=== PATIENT | female | born 1950 | race Caucasian/White ===

== ENCOUNTER → 2017-10-03 13:11 | Outpatient (CLI) | payer MEDICARE, SELFPAY ==
--- NOTE | 2017-10-03 13:15 | CT_ITS ---
CT abdomen pelvis wo con INDICATION: Left-sided abdominal pain. Left back pain up to 3 months. Trace blood in urine ITS.REASON: ABD PAIN, HEMATURIA ORDERING PHYSICIAN: Efrain Bennett PATIENT AGE: 67 years COMPARISON: CT abdomen and pelvis from 2013 PROCEDURE: Oral Contrast: None IV Contrast: None TECHNIQUE: Axial images are obtained without contrast. Sagittal and coronal reformatted images are reviewed as well. All CT scans at the facility use one or more dose reduction, viz: automated exposure control; ma/kV adjustment per patient size (including targeted exams where dose is matched to indication; i.e. head); or iterative reconstruction technique. FINDINGS: Lung bases appear clear. Heart normal size. Small sliding hiatal hernia. Benign Calcified granulomas right lung base.. Abdomen/pelvis. Lack of oral and IV contrast decreases sensitivity. Liver, spleen, pancreas, adrenals satisfactory.. The right lobe liver appears generous length but stable measuring 20 cm in length. Gallbladder is been surgically removed. No biliary ductal dilatation. TRACT . No urinary tract calculi nor obstruction. No renal mass evident at the kidneys. Slight lobulated contour towards upper left kidney is similar to 2014.. Ureters normal course and caliber. Pelvis. Small contracted urinary bladder. Empty. Difficult to evaluate in empty state but no calcifications at bladder. 3.4 cm fibroid at the fundus of uterus with dense popcorn like calcification. It was seen previously with no significant change since 2013. I uterus otherwise similar. No adnexal masses. Ovaries appear normal size. GI TRACT . LARGE BOWEL. [place], Redundant cecum which resides at midline just below the level of the the umbilicus. Increased stool throughout the right colon and transverse colon.. May reflect mild constipation. . Colonic Diverticulosis is, most extensive at the sigmoid colon with scattered diverticuli throughout the descending colon and less evident proximal to the splenic flexure. Very slight hazy appearance adjacent the colon on axial image 52 but I doubt this is of significance. Likely stable. No strong evidence of acute diverticulitis. Terminal ileum appears normal. Small residual stump the appendix noted and appears satisfactory.. Posterior fusion L5/S1 since since 2013.. With this there is some additional induration and or mild soft tissue edema posterior to the lower L-spine at the back. Nonspecific not of current significance. There is streak Streak artifact from the metallic elements. . IMPRESSION: ...... 1. No urinary tract calculi nor obstruction to account for the history of hematuria. No renal masses. Bladder is empty difficult to evaluate but no obvious pathology here. 2.. Uterus appears stable with 3.3 cm calcified uterine fibroid at fundus. No adnexal masses. 3. Generous stool throughout the right and transverse colon 4. Colonic diverticulosis most extensive in sigmoid colon.No convincing diverticulitis. Initially question slight wispy appearance at the proximal descending colon but but I believe this is most likely due the mesentery structures leading to the bowel, noting similar appearance in 2014 5. Interval L5/S1 postsurgical changes and posterior fusion
== END ==
PROVIDERS: Family Provider Internal Medicine; PCP Internal Medicine; Visit Provider Internal Medicine
DX: R31.9 Hematuria, unspecified (principal); R10.9 Unspecified abdominal pain
CPT/HCPCS: 74176

== ENCOUNTER → 2018-08-19 09:18 | Outpatient (CLI) | payer MEDICARE, SELFPAY ==
--- NOTE | 2018-08-19 09:25 | XR_ITS ---
XR acute abdomen series HISTORY: ITS.REASON: LT FLANK PAIN, LLQ PAIN ORDERING PHYSICIAN: Efrain Bennett PATIENT AGE: 68 years COMPARISON: None TECHNIQUE: Upright view of the chest is performed along with upright and supine views of the abdomen and pelvis. FINDINGS: An upright view of the chest shows no acute cardiac or pulmonary pathology. The lungs are clear. Upper identified views of the abdomen show surgical clips in right upper quadrant. There are postsurgical changes of the lumbar spine at the lumbosacral junction. Coarse calcifications are present within the pelvis consistent with fibroid involvement of the uterus. The bowel gas pattern is unremarkable. No intestinal obstruction or free air. No acute bony anomalies. IMPRESSION: As above, no acute finding
[2018-08-19 09:41] LABS: Basophils % 0.3 % (0.1-2.0); Eosinophils # 0.2 K/mm3 (0.0-0.4); Eosinophils % 1.8 % (0.1-12.0); Hematocrit 37.7 % (37.0-47.0); Hemoglobin 12.5 g/dL (12.2-16.2); Lymphocytes % 7.8 % (10-50); Mean Corpuscular HGB Conc 33.2 g/dL (31.8-35.4); Mean Corpuscular Hemoglobin 28.6 pg (27.0-31.2); Mean Platelet Volume 8.6 fl (7.4-10.4); Monocytes # 0.5 K/mm3 (0.1-1.0); Monocytes % 4.4 % (1.7-9.3); Neutrophils # 10.5 K/mm3 (1.8-7.8); Neutrophils % 85.6 % (37.0-80.0); Platelet Count 220 K/mm3 (142-424); Red Blood Count 4.38 M/mm3 (4.20-5.40); Red Cell Distribution Width 14.9 % (11.5-17.5); White Blood Count 12.2 K/mm3 (4.8-10.8)
[2018-08-19 09:51] LABS: MANUAL DIFFERENTIAL MANUAL DIFFERENTIAL (MANUAL DIFF)
[2018-08-19 10:11] LABS: Anion Gap 15.9 mEq/L (5-15); Blood Urea Nitrogen 23 mg/dL (7-18); Carbon Dioxide 27 mmol/L (21.0-32.0); Chloride 104 mmol/L (98-107); Creatinine,Serum 1.09 mg/dL (0.55-1.02); Estimated Glomerular Filt Rate 50 ml/min (>60); GFR (African American) 61 ML/MIN (>60); Glucose 163 mg/dL (74-106); Potassium 4.9 mmoL/L (3.5-5.1); Sodium 142 mmol/L (136-145)
[2018-08-19 10:55] LABS: Lymphocytes % 12 % (10-50); Monocytes % 5 % (2-9); Neutrophils % 82 % (42-76); Nucleated Red Blood Cells 1; Total Cells Counted 100
[2018-08-19 10:56] LABS: Platelet Estimate Normal
== END ==
PROVIDERS: PCP Internal Medicine; Visit Provider Internal Medicine
DX: R10.32 Left lower quadrant pain (principal)
CPT/HCPCS: 74021; 80048; 85007; 85025

== ENCOUNTER → 2019-11-18 10:43 | Outpatient (CLI) | payer MEDICARE, SELFPAY ==
[2019-11-18 13:16] LABS: Coronavirus 19 IgG Antibody Negative (Negative); Coronavirus 19 IgM Antibody Negative (Negative)
== END ==
PROVIDERS: Visit Provider Internal Medicine Gastroenterology
DX: Z01.818 Encounter for other preprocedural examination (principal); Z12.11 Encounter for screening for malignant neoplasm of colon
CPT/HCPCS: 36415; 86328

== ENCOUNTER 2019-11-20 08:25 | Day surgery (SDC) | payer MEDICARE, SELFPAY ==
[2019-11-17 12:39] VITALS: BMI 82.6
[2019-11-20] VITALS (8 sets, daily range): BP systolic 90–125; BP diastolic 52–84; PULSE 71–88; RESP 16–18; TEMP 36.1; O2SAT 92–97
--- NOTE | 2019-11-20 09:19 | HMH.ANESCL ---
[facility] Anesthesia Checklist - Patient Identification Patient Identification: Arm Band - Structural Data Admitted From: Home Planned Operative Procedure/s: EGD/Colonoscopy Consent for Planned Operative Procedure(s) Verified: Yes Verified Documents: Surgical Consent, History and Physical - NPO Status Verified Time NPO: 00:00 - Additional verifications Anesthesia Reactions: No - Airway Assessment C-Spine Mobility Assessed: Yes (mp2) TMJ Mobility Assessed: Yes Dentition: Good Dentition - Neurological Assessment Level of Consciousness: Awake, Alert - Anesthesia Plan Anesthesia Risk discussed: Yes Anesthesia Plan: Verified ASA Class: III Anesthesia Type: MAC [facility] History I have reviewed the patient's past medical history: Yes Medical History: Reports:: Asthma, Cancer (left breast), Gastroesophageal Reflux Disease(GERD), Hypertension Denies:: Diabetes Mellitus Type 1, Diabetes Mellitus Type 2, Internal Pacemaker, MRSA, Seizures *Have you ever received a pneumonia vaccine?: No *Have you received a flu vaccine this season?: Yes Anesthesia experience/problems:: nac Laterality Cases: Left: Lumpectomy, Right: Other, Bilateral: Tonsillectomy Other Surgeries: Yes: Appendectomy, Other. No: Pacemaker Amputation: No Fractures: No - *Social History Last grade of school completed: Some college Smoking Status: Former smoker Alcohol Intake: never Substance Use Type: denies use *Occupational Status:: retired Housing: house Household Members: spouse *Travel in the last 8 weeks: None Family Hx:: Cancer, Diabetes
--- NOTE | 2019-11-20 10:48 | HMH.PROC ---
[facility] Procedure Note Procedure Note:: Upper Endoscopy Procedure Report: Esophagogastroduodenoscopy with cold biopsies Endoscopost: Adryan Wilson II, MD Referring Physician: Efrain Bennett MD Date of Procedure: November 20, 2019 Equipment: Olympus GIF 180 standard upper endoscope Sedation: MAC sedation Indications: Mrs. Stein is a 69-year-old female with a history of Avila's esophagus. She did have biopsies in 2014 showing Avila's indeterminate for dysplasia. Her EGD again in July 2015 and August 2017 showed no dysplasia. The patient does get moderate belching, gassiness and bloating. Recently she has had left lower quadrant abdominal pain and tenderness that has been more constant since summer. She reports no dysphagia. Procedure: Prior to the procedure, a history and physical exam was performed, and patient's medications and allergies were reviewed. The risks, benefits and alternatives of the sedation and procedure were discussed with the patient. All questions were answered and informed consent was obtained. The patient was brought to the procedure room. Patient identification and proposed procedure were verified by the physician and the nurse. The patient was placed in a left lateral decubitus position and the scope was passed under direct vision. Throughout the procedure, the patient's blood pressure, pulse, and oxygen saturations were monitored continuously. The upper GI endoscopy was accomplished without difficulty. The patient tolerated the procedure well. Findings: The scope was passed directly into the upper esophagus and advanced to the third portion of the duodenum. The post bulbar duodenum and duodenal bulb were normal with normal mucosa and conniventes. The scope was withdrawn through a normal duodenal bulb and pylorus into the stomach. There was marked bile reflux with moderate linear reactive gastropathy of the antrum and body of the stomach. Upon retroflexion there was a 2 cm hiatal hernia. The scope was then withdrawn into the esophagus. There was bile reflux within the esophagus. There was a long tongue of salmon-colored mucosa with a small island of salmon-colored mucosa that were consistent with short segment Avila's esophagus. Narrowband imaging was utilized and specific/direct and biopsies were obtained x4. There was no evidence of reflux esophagitis. The remainder of the esophageal mucosa was normal. Impression: 1. Tongue of Avila's esophagus (3 cm) 2. Nonerosive GERD (bilious reflux) with small hiatal hernia 3. Bile reflux with moderate linear reactive gastropathy Plan: I will discussed the findings with the patient and family. I will follow-up the esophageal biopsies to exclude dysplasia. I do feel that she has more duodenal reflux causing her symptoms. This is certainly driven by gas pressure gradients. I will proceed with colonoscopy.
--- NOTE | 2019-11-20 11:07 | HMH.PROC ---
[facility] Procedure Note Procedure Note:: Colonoscopy Procedure Report: Colonoscopy with cold snare polypectomy Endoscopist: Adryan Wilson II, MD Referring physician: Efrain Bennett MD Date of Procedure: November 20, 2019 Equipment: Olympus 180 variable stiffness pediatric colonoscope Sedation: MAC sedation Indication: Mrs. Stein is a 69-year-old female who is here for diagnostic colonoscopy. The patient has had iron deficiency. The patient over the last 2 or 3 months has had constant daily left lower abdominal pain that radiates into the left groin. She has had this for over a year but it has worsened since this summer. She does state that she will get postprandial abdominal crampy discomfort with bowel urgency and some bowel frequency. She reports no rectal bleeding and does report regular bowel function as long she takes iron supplementation. She has stopped taking the combine fiber bowel regimen (MiraLAX plus Metamucil). She often has multiple bowel movements daily. She reports no rectal bleeding. She has had some minor weight loss. She does state that her father had colon cancer in his 70s. The patient's last colonoscopy in September 2013 revealed no colon polyps. She did have a bout of diverticulitis requiring hospitalization 7 to 10 years ago. Procedure: Prior to the procedure, a history and physical exam was performed, and patient's medications and allergies were reviewed. The risks, benefits and alternatives of the sedation and procedure were discussed with the patient. All questions were answered and informed consent was obtained. The patient was brought to the procedure room. Patient identification and proposed procedure were verified by the physician and the nurse. The patient was placed in a left lateral decubitus position and the scope was passed under direct vision. Throughout the procedure, the patient's blood pressure, pulse, and oxygen saturations were monitored continuously. The colonoscopy was accomplished without difficulty. The patient tolerated the procedure well. Findings: On digital rectal examination there was normal rectal tone. There were no external hemorrhoids. The colonoscope was introduced through the anal canal to the rectum and advanced to the cecum. The ileocecal valve and appendiceal orifice were identified. The scope was advanced a short distance into the ileum which appeared grossly normal. The scope was then withdrawn into the colon. The cecum, ascending and transverse colon and mucosa were grossly normal. There were scattered diverticuli throughout the descending and sigmoid colon (LEFT colon). Indeed, there was haustral thickening within the sigmoid colon with an inflamed diverticulum and a 7 mm sigmoid polyp adjacent (probable inflammatory pseudopolyp). This was removed via cold snare polypectomy. This was certainly suggestive of chronic sigmoid diverticulitis and there was some surrounding pericolonic adhesions in the sigmoid colon. The rectum itself was normal. Upon retroflexion within the rectum there were grade 1-2 internal hemorrhoids. The preparation was excellent throughout with Gillett Preparation Score of 9. The cecal time was 14 minutes. Impression: 1. Left-sided diverticulosis with evidence of chronic sigmoid diverticulitis with associated pseudopolyp/inflammatory polyp and pericolonic adhesions Plan: I will discuss the findings with the patient and family. I do feel that we should do CT scan of the abdomen and pelvis as well. She may require sigmoid resection/low anterior resection because of the chronicity and ongoing pain. I do feel that her obstipation has resulted in some of the upper digestive tract issues as well.
--- NOTE | 2019-11-20 12:44 | CT_ITS ---
PROCEDURE: CT ABDOMEN PELVIS W CON CLINICAL INDICATION: abdominal pain, weight loss, diverticulitis Abdominal pain and weight loss, chronic diverticulitis with nausea vomiting bloating and gaseous distension COMPARISON: CT ABDPELWO CT abdomen pelvis wo con from 10/03/2017 TECHNIQUE: IV Contrast: 75ML OPTIRAY 350 Oral Contrast None Axial images obtained with sagittal and coronal reformats. All CT scans at the facility use one or more dose reduction, viz: automated exposure control, ma/kV adjustment per patient size (including targeted exams where dose is matched to indication, i.e. head), or iterative reconstruction technique. FINDINGS: LOWER THORAX: Some minimal atelectatic changes in the lung bases. ABDOMEN & PELVIS: There is a 4 mm low-density area in the left hepatic lobe segment 2 B. and a 3 mm hypodensity in the hepatic dome segment 2 B. These are nonspecific too small to categorize. Prior cholecystectomy. Small hiatal hernia is noted. The adrenal glands, pancreas, and kidneys have an unremarkable appearance. No renal or ureteral calculi. No hydronephrosis. There is diffuse coarse calcification of the fundus of the uterus consistent with fibroid involvement. There is given history of appendectomy. There are multiple colonic diverticula. There is focal thickening of the sigmoid colon with soft tissue nodularity along the inferior and lateral aspect of the sigmoid colon measuring up to 3 cm by 3.4 cm. In the left adnexal region there is a mixed soft tissue and fluid collection measuring 3.4 cm AP and 3 cm transverse. This is inferior to the nodular area of the sigmoid colon. This does contain a small focal area of gas density. This lesion does abut the posterior aspect of the urinary bladder. There is not a good fat plane between the fluid collection and the urinary bladder. No free fluid is present in the pelvis no distant free air is apparent. Postsurgical changes of the lumbar spine with inter pedicular screws at L5 and S1 with disc spacer device. No acute bony anomalies evident. IMPRESSION: In the left adnexa there is abnormal soft tissue density which is contiguous with the inferior aspect of the sigmoid colon which is thickened. This area also contains a small fluid collection and a small focus of gas. These findings could all be related to a diverticular abscess with phlegmonous change. Necrotic neoplasm either from the sigmoid colon or from the left ovary is an additional consideration. This lesion is not amenable to percutaneous drainage or biopsy. There is thickening of the left sigmoid colon with colonic diverticulosis but with only minimal stranding of the pericolic fat. Sigmoid diverticulitis is considered. Other nonacute findings as described above Dictated by: Chris Zhu MD 11/20/2019 16:10 Chris Zhu MD in [place] 11/20/2019 16:10
--- NOTE | 2019-11-20 13:08 | PC.NURSE ---
Radiology instructed to dc IV when ct with IV contrast completed. Pt assisted to Rad for oral contrast
[2019-11-20 14:59] LABS: Blood Urea Nitrogen 18 mg/dl (7-17); Creatinine Clearance Estimated 43 mL/min (50-200); Estimated Glomerular Filt Rate 62 ml/min (>60); GFR (African American) 76 ML/MIN (>60)
== END 2019-11-20 12:55 | disposition home or self-care (01) ==
LOC: OUTP 08:26
PROVIDERS: PCP Internal Medicine; Visit Provider Internal Medicine Gastroenterology
PROC: 0DJ08ZZ Inspection of Upper Intestinal Tract, Via Natural or Artificial Opening Endoscopic (ICD-10-PCS; CPT 43235; principal; 2019-11-20 09:30)
DX: K21.9 Gastro-esophageal reflux disease without esophagitis (principal); K44.9 Diaphragmatic hernia without obstruction or gangrene; K57.30 Diverticulosis of large intestine without perforation or abscess without bleeding; K57.32 Diverticulitis of large intestine without perforation or abscess without bleeding; K63.5 Polyp of colon; K66.0 Peritoneal adhesions (postprocedural) (postinfection); K22.70 Barrett's esophagus without dysplasia; K31.9 Disease of stomach and duodenum, unspecified; D50.9 Iron deficiency anemia, unspecified; Z87.19 Personal history of other diseases of the digestive system; Z80.0 Family history of malignant neoplasm of digestive organs
CPT/HCPCS: 43239; 45385; 74177; 82565; 84520; 88305; Q9967

== ENCOUNTER → 2021-03-08 15:49 | Outpatient (CLI) | payer MEDICARE, SELFPAY ==
[2021-03-08 17:13] LABS: Anion Gap 15.5 mEq/L (5-15); Blood Urea Nitrogen 18 mg/dl (7-17); Calcium 9.5 mg/dl (8.4-10.2); Carbon Dioxide 30 mmol/L (22.0-30.0); Chloride 96 mmol/L (98-107); Estimated Glomerular Filt Rate 71 ml/min (>60); GFR (African American) 86 ML/MIN (>60); Glucose 147 mg/dl (74-100); Potassium 4.5 mmoL/L (3.5-5.1); Sodium 137 mmol/L (136-145)
== END ==
PROVIDERS: Visit Provider Internal Medicine
DX: E11.9 Type 2 diabetes mellitus without complications (principal); E78.5 Hyperlipidemia, unspecified; I10 Essential (primary) hypertension; Z85.3 Personal history of malignant neoplasm of breast
CPT/HCPCS: 80048

== ENCOUNTER → 2021-07-11 15:05 | Outpatient (CLI) | payer MEDICARE, SELFPAY ==
[2021-07-11 15:56] LABS: Creatinine,Urine Random 335 mg/dL (Not Estab.)
[2021-07-11 16:14] LABS: Basophils # 0.1 K/mm3 (0-0.2); Basophils % 1.3 % (0.1-2.0); Eosinophils # 0.2 K/mm3 (0.0-0.4); Eosinophils % 4.3 % (0.1-12.0); Hematocrit 42.5 % (37.0-47.0); Hemoglobin 13.1 g/dL (12.2-16.2); Lymphocytes # 1.4 K/mm3 (0.7-4.5); Mean Corpuscular HGB Conc 30.8 g/dL (31.8-35.4); Mean Corpuscular Hemoglobin 28.8 pg (27.0-31.2); Mean Corpuscular Volume 93.6 fl (81-99); Mean Platelet Volume 9.4 fl (7.4-10.4); Monocytes # 0.4 K/mm3 (0.1-1.0); Monocytes % 7.4 % (1.7-9.3); Neutrophils # 2.8 K/mm3 (1.8-7.8); Platelet Count 229 K/mm3 (142-424); Red Blood Count 4.54 M/mm3 (4.20-5.40); Red Cell Distribution Width 14.3 % (11.5-17.5); White Blood Count 4.8 K/mm3 (4.8-10.8)
[2021-07-11 16:31] LABS: Alanine Aminotransferase 23 U/L (12-78); Albumin Level 4.2 g/dl (3.5-5.0); Albumin/Globulin Ratio 1.7 (1.1-1.8); Alkaline Phosphatase 63 U/L (38-126); Anion Gap 10.5 mEq/L (5-15); Aspartate Amino Transferase 21 U/L (14-36); Bilirubin,Total 0.5 mg/dl (0.2-1.3); Blood Urea Nitrogen 19 mg/dl (7-17); Calcium 8.9 mg/dl (8.4-10.2); Carbon Dioxide 32 mmol/L (22.0-30.0); Chloride 102 mmol/L (98-107); Chol/HDL Ratio 3.3 (1-3.5); Cholesterol 163 mg/dl (140-200); Estimated Glomerular Filt Rate 71 ml/min (>60); GFR (African American) 86 ML/MIN (>60); Globulin 2.5 g/dL (1.3-3.2); Glucose 142 mg/dl (74-100); HDL Cholesterol 50 mg/dl (40-60); Potassium 4.5 mmoL/L (3.5-5.1); Sodium 140 mmol/L (136-145); Total Protein,Serum 6.7 g/dl (6.3-8.2); Triglycerides 166 mg/dl (30-150); VLDL Cholesterol 33 mg/dL (0-40)
[2021-07-11 16:42] LABS: Direct LDL Cholesterol 71.51 mg/dL (100-129)
[2021-07-11 16:57] LABS: Hemoglobin A1C 7.1 % (4.0-6.0)
== END ==
PROVIDERS: Visit Provider Internal Medicine
DX: E11.9 Type 2 diabetes mellitus without complications (principal); I10 Essential (primary) hypertension; E78.5 Hyperlipidemia, unspecified; Z85.3 Personal history of malignant neoplasm of breast
CPT/HCPCS: 80053; 80061; 82043; 82570; 83036; 85025

== ENCOUNTER → 2021-10-11 12:28 | Outpatient (CLI) | payer MEDICARE, SELFPAY ==
--- NOTE | 2021-10-11 12:33 | XR_ITS ---
PROCEDURE INFORMATION: Exam: XR Right Knee Exam date and time: 10/11/2021 12:37 PM Age: 71 years old Clinical indication: Pain; Knee; Right; Additional info: Osteoarthritis, RT knee pain TECHNIQUE: Imaging protocol: Radiologic exam of the Right knee. Views: 3 views. COMPARISON: No relevant prior studies available. FINDINGS: Bones/joints: Osteophytosis and eburnation most severely in the medial compartment with loss of joint space. Soft tissues: No radiopaque foreign object or localized soft tissue swelling. IMPRESSION: Osteoarthritis.
--- NOTE | 2021-10-11 12:33 | XR_ITS ---
PROCEDURE INFORMATION: Exam: XR Thoracic Spine Exam date and time: 10/11/2021 12:37 PM Age: 71 years old Clinical indication: Pain in thoracic spine; Additional info: Thoracic back pain TECHNIQUE: Imaging protocol: Radiologic exam of the thoracic spine. Views: 3 views. COMPARISON: CT ABDOMEN PELVIS W CON 11/20/2019 3:25 PM FINDINGS: Bones/joints: Degenerative spondylosis, mild rotoscoliosis and facet arthropathy. Mild diffuse bone demineralization. Pedicles appear intact. No evidence of acute displaced cortical disruption or spondylolisthesis. Soft tissues: Unremarkable. Intraperitoneal space: Metallic clips right upper quadrant abdomen from prior cholecystectomy. IMPRESSION: 1. Degenerative disc disease, mild rotoscoliosis and facet arthropathy. 2. Osteopenia/osteoporosis.
--- NOTE | 2021-10-11 12:33 | XR_ITS ---
PROCEDURE INFORMATION: Exam: XR Left Knee Exam date and time: 10/11/2021 12:37 PM Age: 71 years old Clinical indication: Pain; Knee; Left; Additional info: Osteoarthritis, lt knee pain TECHNIQUE: Imaging protocol: Radiologic exam of the Left knee. Views: 3 views. COMPARISON: No relevant prior studies available. FINDINGS: Bones/joints: Mild loss of joint space, osteophytosis and eburnation most notably in the medial compartment. Small knee joint effusion. Soft tissues: Normal. IMPRESSION: 1. Osteoarthritis. 2. Small knee joint effusion. 3. No acute fracture is identified.
== END ==
PROVIDERS: PCP Internal Medicine; Visit Provider Internal Medicine
DX: M54.6 Pain in thoracic spine (principal); M17.0 Bilateral primary osteoarthritis of knee
CPT/HCPCS: 72072; 73562

== ENCOUNTER → 2022-01-10 12:50 | Outpatient (CLI) | payer MEDICARE, SELFPAY ==
[2022-01-10 17:00] LABS: Basophils # 0.1 K/mm3 (0-0.2); Basophils % 1.5 % (0.1-2.0); Eosinophils # 0.2 K/mm3 (0.0-0.4); Eosinophils % 4.1 % (0.1-12.0); Hematocrit 41.2 % (37.0-47.0); Hemoglobin 13.2 g/dL (12.2-16.2); Lymphocytes # 1.2 K/mm3 (0.7-4.5); Mean Corpuscular Hemoglobin 29.8 pg (27.0-31.2); Mean Corpuscular Volume 93.3 fl (81-99); Mean Platelet Volume 10.8 fl (7.4-10.4); Monocytes # 0.3 K/mm3 (0.1-1.0); Monocytes % 7.1 % (1.7-9.3); Neutrophils # 2.3 K/mm3 (1.8-7.8); Neutrophils % 57.2 % (37.0-80.0); Platelet Count 210 K/mm3 (142-424); Red Blood Count 4.42 M/mm3 (4.20-5.40); Red Cell Distribution Width 14.3 % (11.5-17.5); White Blood Count 4.1 K/mm3 (4.8-10.8)
[2022-01-10 18:32] LABS: Alanine Aminotransferase 22 U/L (12-78); Albumin/Globulin Ratio 1.5 (1.1-1.8); Alkaline Phosphatase 111 U/L (38-126); Anion Gap 17.5 mEq/L (5-15); Aspartate Amino Transferase 27 U/L (14-36); Bilirubin,Total 0.3 mg/dl (0.2-1.3); Blood Urea Nitrogen 16 mg/dl (7-17); Calcium 8.8 mg/dl (8.4-10.2); Carbon Dioxide 27 mmol/L (22.0-30.0); Chloride 100 mmol/L (98-107); Chol/HDL Ratio 3.2 (1-3.5); Cholesterol 162 mg/dl (140-200); Estimated Glomerular Filt Rate 83 ml/min (>60); GFR (African American) 100 ML/MIN (>60); Globulin 2.7 g/dL (1.3-3.2); Glucose 177 mg/dl (74-100); HDL Cholesterol 51 mg/dl (40-60); Potassium 4.5 mmoL/L (3.5-5.1); Sodium 140 mmol/L (136-145); Total Protein,Serum 6.7 g/dl (6.3-8.2); Triglycerides 158 mg/dl (30-150); VLDL Cholesterol 32 mg/dL (0-40)
[2022-01-10 18:54] LABS: Direct LDL Cholesterol 81.77 mg/dL (100-129)
[2022-01-10 20:02] LABS: Hemoglobin A1C 7.6 % (4.0-6.0)
== END ==
PROVIDERS: PCP Internal Medicine; Visit Provider Internal Medicine
DX: E11.9 Type 2 diabetes mellitus without complications (principal); I10 Essential (primary) hypertension; K22.70 Barrett's esophagus without dysplasia; E78.5 Hyperlipidemia, unspecified
CPT/HCPCS: 80053; 80061; 83036; 85025

== ENCOUNTER → 2022-01-11 13:08 | Outpatient (CLI) | payer MEDICARE, SELFPAY ==
--- NOTE | 2022-01-11 13:14 | XR_ITS ---
FINAL REPORT CLINICAL HISTORY: HX OF BREAST CANCER FINDINGS: Two views of the chest were obtained. The heart size and pulmonary vascularity are within normal limits. The mediastinum is normal. There is mild left lung base scarring. There is no pneumothorax. The bony thorax is intact. IMPRESSION: No active cardiopulmonary disease. Reviewed, Interpreted and Dictated by Baron Underwood III, MD Transcribed by Maddy Alcazar Authenticated and [facility][1]
== END ==
PROVIDERS: PCP Internal Medicine; Visit Provider Internal Medicine
DX: R07.9 Chest pain, unspecified (principal); Z85.3 Personal history of malignant neoplasm of breast
CPT/HCPCS: 71046

== ENCOUNTER → 2022-07-11 09:44 | Outpatient (CLI) | payer MEDICARE, SELFPAY ==
--- NOTE | 2022-07-11 09:58 | XR_ITS ---
FINAL REPORT CLINICAL HISTORY: RT MAXILLARY PAIN COMPARISON: None FINDINGS: Three views of the sinuses were obtained. There is no evidence of sinus mucosal thickening. No fluid levels identified. No fracture or acute bony abnormality. IMPRESSION: No acute process. Reviewed, Interpreted and Dictated by Baron Underwood III, MD Transcribed by Krupa Ross Authenticated and [facility]
[2022-07-11 10:16] LABS: Basophils # 0.1 K/mm3 (0-0.2); Eosinophils # 0.3 K/mm3 (0.0-0.4); Eosinophils % 4.8 % (0.1-12.0); Hematocrit 38.8 % (37.0-47.0); Lymphocytes # 1.5 K/mm3 (0.7-4.5); Lymphocytes % 25.7 % (10-50); Mean Corpuscular HGB Conc 33.5 g/dL (31.8-35.4); Mean Corpuscular Volume 92.4 fl (81-99); Mean Platelet Volume 9.5 fl (7.4-10.4); Monocytes # 0.3 K/mm3 (0.1-1.0); Monocytes % 5.3 % (1.7-9.3); Neutrophils # 3.8 K/mm3 (1.8-7.8); Neutrophils % 63.3 % (37.0-80.0); Platelet Count 197 K/mm3 (142-424); Red Blood Count 4.19 M/mm3 (4.20-5.40); Red Cell Distribution Width 14.5 % (11.5-17.5)
[2022-07-11 11:03] LABS: Hemoglobin A1C 8.2 % (4.0-6.0)
[2022-07-11 11:22] LABS: Erythrocyte Sedimentation Rate 12 mm/hr (0-30)
== END ==
PROVIDERS: PCP Internal Medicine; Visit Provider Internal Medicine
DX: E11.9 Type 2 diabetes mellitus without complications (principal); E78.5 Hyperlipidemia, unspecified; I10 Essential (primary) hypertension; M15.0 Primary generalized (osteo)arthritis
CPT/HCPCS: 36415; 70220; 83036; 85025; 85651

== ENCOUNTER → 2022-10-15 14:24 | Outpatient (CLI) | payer MEDICARE, SELFPAY ==
[2022-10-15 17:54] LABS: Creatinine,Urine Random 294 mg/dL (Not Estab.)
[2022-10-15 17:59] LABS: Microalbumin/Creatinine Ratio 10.4
[2022-10-15 18:34] LABS: Hemoglobin A1C 7.5 % (4.0-6.0)
[2022-10-15 18:42] LABS: Alanine Aminotransferase 18 U/L (12-78); Albumin Level 4.9 g/dl (3.5-5.0); Albumin/Globulin Ratio 1.7 (1.1-1.8); Alkaline Phosphatase 70 U/L (38-126); Anion Gap 16.2 mEq/L (5-15); Aspartate Amino Transferase 25 U/L (14-36); Bilirubin,Total 0.5 mg/dl (0.2-1.3); Blood Urea Nitrogen 21 mg/dl (7-17); Calcium 9.7 mg/dl (8.4-10.2); Carbon Dioxide 30 mmol/L (22.0-30.0); Chloride 99 mmol/L (98-107); Cholesterol 179 mg/dl (140-200); Estimated Glomerular Filt Rate 62 ml/min (>60); GFR (African American) 75 ML/MIN (>60); Globulin 2.9 g/dL (1.3-3.2); Glucose 147 mg/dl (74-100); HDL Cholesterol 60 mg/dl (40-60); Potassium 5.2 mmoL/L (3.5-5.1); Sodium 140 mmol/L (136-145); Total Protein,Serum 7.8 g/dl (6.3-8.2); Triglycerides 172 mg/dl (30-150); VLDL Cholesterol 34 mg/dL (0-40)
== END ==
PROVIDERS: PCP Internal Medicine; Visit Provider Internal Medicine
DX: E11.9 Type 2 diabetes mellitus without complications (principal); I10 Essential (primary) hypertension; E78.5 Hyperlipidemia, unspecified; K22.70 Barrett's esophagus without dysplasia
CPT/HCPCS: 80053; 80061; 82043; 82570; 83036

== ENCOUNTER 2023-10-10 16:33 | Outpatient (CLI) | payer MEDICARE, SELFPAY ==
[2023-10-10 17:20] LABS: Basophils # 0.1 K/mm3 (0-0.2); Basophils % 1.2 % (0.1-2.0); Eosinophils # 0.3 K/mm3 (0.0-0.4); Eosinophils % 3.9 % (0.1-12.0); Hematocrit 41.6 % (37.0-47.0); Hemoglobin 13.5 g/dL (12.2-16.2); Lymphocytes # 2.1 K/mm3 (0.7-4.5); Mean Corpuscular HGB Conc 32.5 g/dL (31.8-35.4); Mean Corpuscular Hemoglobin 29.6 pg (27.0-31.2); Mean Corpuscular Volume 91.1 fl (81-99); Mean Platelet Volume 9.5 fl (7.4-10.4); Monocytes # 0.4 K/mm3 (0.1-1.0); Monocytes % 6.5 % (1.7-9.3); Neutrophils # 3.6 K/mm3 (1.8-7.8); Neutrophils % 56.4 % (37.0-80.0); Platelet Count 201 K/mm3 (142-424); Red Blood Count 4.56 M/mm3 (4.20-5.40); Red Cell Distribution Width 15.2 % (11.5-17.5); White Blood Count 6.5 K/mm3 (4.8-10.8)
== END 2023-10-10 23:59 | disposition home or self-care (01) ==
LOC: LAB.DROPOF 16:34
PROVIDERS: PCP Internal Medicine; Visit Provider Internal Medicine
DX: R10.32 Left lower quadrant pain (principal)
CPT/HCPCS: 85025

== ENCOUNTER 2024-01-14 10:45 | Outpatient (CLI) | payer MEDICARE, SELFPAY ==
[2024-01-14 15:56] LABS: Basophils # 0.1 K/mm3 (0-0.2); Basophils % 0.9 % (0.1-2.0); Eosinophils # 0.2 K/mm3 (0.0-0.4); Eosinophils % 3.1 % (0.1-12.0); Hematocrit 43.5 % (37.0-47.0); Hemoglobin 14.2 g/dL (12.2-16.2); Lymphocytes # 1.3 K/mm3 (0.7-4.5); Lymphocytes % 23.1 % (10-50); Mean Corpuscular HGB Conc 32.6 g/dL (31.8-35.4); Mean Corpuscular Hemoglobin 29.8 pg (27.0-31.2); Mean Corpuscular Volume 91.4 fl (81-99); Mean Platelet Volume 9.8 fl (7.4-10.4); Monocytes # 0.4 K/mm3 (0.1-1.0); Monocytes % 6.3 % (1.7-9.3); Neutrophils # 3.7 K/mm3 (1.8-7.8); Neutrophils % 66.6 % (37.0-80.0); Platelet Count 211 K/mm3 (142-424); Red Blood Count 4.76 M/mm3 (4.20-5.40); Red Cell Distribution Width 14.8 % (11.5-17.5); White Blood Count 5.6 K/mm3 (4.8-10.8)
[2024-01-14 16:07] LABS: Creatinine,Urine Random 320 mg/dL (Not Estab.)
[2024-01-14 16:15] LABS: Microalbumin/Creatinine Ratio 23.3
[2024-01-14 16:42] LABS: Alanine Aminotransferase 20 U/L (12-78); Albumin Level 4.2 g/dl (3.5-5.0); Albumin/Globulin Ratio 1.7 (1.1-1.8); Alkaline Phosphatase 63 U/L (38-126); Anion Gap 18.4 mEq/L (5-15); Aspartate Amino Transferase 26 U/L (14-36); Bilirubin,Total 0.6 mg/dl (0.2-1.3); Blood Urea Nitrogen 12 mg/dl (7-17); Calcium 9.2 mg/dl (8.4-10.2); Carbon Dioxide 27 mmol/L (22.0-30.0); Chloride 99 mmol/L (98-107); Chol/HDL Ratio 3.5 (1-3.5); Cholesterol 163 mg/dl (140-200); Estimated Glomerular Filt Rate 82 ml/min (>60); GFR (African American) 100 ML/MIN (>60); Globulin 2.5 g/dL (1.3-3.2); Glucose 170 mg/dl (74-100); HDL Cholesterol 47 mg/dl (40-60); Potassium 4.4 mmoL/L (3.5-5.1); Sodium 140 mmol/L (136-145); Total Protein,Serum 6.7 g/dl (6.3-8.2); Triglycerides 153 mg/dl (30-150); VLDL Cholesterol 31 mg/dL (0-40)
[2024-01-14 16:46] LABS: Hemoglobin A1C 6.9 % (4.0-6.0)
[2024-01-14 16:53] LABS: Direct LDL Cholesterol 90.23 mg/dL (100-129)
[2024-01-14 17:31] LABS: Vitamin B12 388 pg/mL (239-931)
== END 2024-01-14 23:59 | disposition home or self-care (01) ==
LOC: LAB.DROPOF 01-15 09:38
PROVIDERS: PCP Internal Medicine; Visit Provider Internal Medicine
DX: I10 Essential (primary) hypertension (principal); E78.5 Hyperlipidemia, unspecified; E11.9 Type 2 diabetes mellitus without complications; R53.83 Other fatigue
CPT/HCPCS: 80053; 80061; 82043; 82570; 82607; 83036; 85025

== ENCOUNTER 2024-07-06 10:39 | Outpatient (CLI) | payer MEDICARE, SELFPAY ==
--- NOTE | 2024-07-06 10:43 | XR_ITS ---
FINAL REPORT CLINICAL HISTORY: Lumbago with right sciatica COMPARISON: None FINDINGS: AP and lateral views of the lumbar spine were obtained. There is no prior exam for comparison. Posterior fusion of the L5-S1 level is noted. There is no acute fracture or malalignment. Vertebral body height is preserved. There is mild degenerative disc disease present, most pronounced at the L1-2 level. No acute paraspinal abnormality. IMPRESSION: No acute osseous abnormality of the lumbar spine. Posterior fusion L5-S1, with mild degenerative disc disease most pronounced at the L1-2 level. Reviewed, Interpreted and Dictated by Yani Khan MD Transcribed by Mckenna Yanez Authenticated and [facility]
--- NOTE | 2024-07-06 10:43 | XR_ITS ---
FINAL REPORT TECHNIQUE: Cervical spine 5 views CLINICAL HISTORY: Neck pain with stiffness and right arm pain COMPARISON: None FINDINGS: CERVICAL SPINE 5 views were obtained. There is no acute fracture. There is mild anterolisthesis of C4 on C5 and C5 on C6. There is multilevel degenerative disc disease present, most pronounced at the C6-7 level. The prevertebral soft tissues are unremarkable in appearance. IMPRESSION: No acute process. Multilevel degenerative disc disease, most pronounced at the C6-7 level. Reviewed, Interpreted and Dictated by Yani Khan MD Transcribed by Mckenna Yanez Authenticated and [facility]
[2024-07-06 14:21] LABS: Basophils # 0.1 K/mm3 (0-0.2); Basophils % 0.8 % (0.1-2.0); Eosinophils # 0.2 Kmm3 (0.0-0.4); Eosinophils % 3.9 % (0.1-12.0); Hematocrit 42.5 % (37.0-47.0); Hemoglobin 13.3 g/dL (12.2-16.2); Lymphocytes # 1.7 K/mm3 (0.7-4.5); Lymphocytes % 27.9 % (10-50); Mean Corpuscular HGB Conc 31.3 g/dL (31.8-35.4); Mean Corpuscular Hemoglobin 28.8 pg (27.0-31.2); Mean Platelet Volume 11.8 fl (7.4-10.4); Monocytes # 0.6 K/mm3 (0.1-1.0); Monocytes % 9.7 % (1.7-9.3); Neutrophils # 3.6 K/mm3 (1.8-7.8); Neutrophils % 57.5 % (37.0-80.0); Nucleated Red Blood Cells # 0 10^3/uL; Nucleated Red Blood Cells % 0 %; Platelet Count 220 K/mm3 (142-424); Red Blood Count 4.62 M/mm3 (4.20-5.40); Red Cell Distribution Width 13.8 % (11.5-17.5); Red Cell Distribution Width-SD 46.5 fL; White Blood Count 6.2 K/mm3 (4.8-10.8)
[2024-07-06 14:33] LABS: Albumin Level 4.6 g/dl (3.5-5.0); Chloride 102 mmol/L (98-107); Potassium 4.5 mmoL/L (3.5-5.1); Sodium 140 mmol/L (136-145)
[2024-07-06 14:35] LABS: Alanine Aminotransferase 21 U/L (12-78); Anion Gap 14.5 mEq/L (5-15); Aspartate Amino Transferase 28 U/L (14-36); Blood Urea Nitrogen 14 mg/dl (7-17); Carbon Dioxide 28 mmol/L (22.0-30.0); Estimated Glomerular Filt Rate 98 ml/min (>60); GFR (African American) 119 ML/MIN (>60)
[2024-07-06 14:36] LABS: Albumin/Globulin Ratio 1.7 (1.1-1.8); Alkaline Phosphatase 57 U/L (38-126); Bilirubin,Total 0.6 mg/dl (0.2-1.3); Calcium 9.3 mg/dl (8.4-10.2); Chol/HDL Ratio 3.1 (1-3.5); Cholesterol 176 mg/dl (140-200); Globulin 2.7 g/dL (1.3-3.2); Glucose 176 mg/dl (74-100); HDL Cholesterol 56 mg/dl (40-60); Total Protein,Serum 7.3 g/dl (6.3-8.2); Triglycerides 137 mg/dl (30-150); VLDL Cholesterol 27 mg/dL (0-40)
[2024-07-06 14:41] LABS: Microalbumin/Creatinine Ratio 9.3
[2024-07-06 14:45] LABS: Creatinine,Urine Random 215 mg/dL (Not Estab.)
[2024-07-06 14:47] LABS: Direct LDL Cholesterol 77.61 mg/dL (100-129)
== END 2024-07-06 23:59 | disposition home or self-care (01) ==
LOC: RAD 10:40
PROVIDERS: PCP Internal Medicine; Visit Provider Internal Medicine
DX: M54.31 Sciatica, right side (principal); M47.22 Other spondylosis with radiculopathy, cervical region; I10 Essential (primary) hypertension; E11.9 Type 2 diabetes mellitus without complications; E78.5 Hyperlipidemia, unspecified
CPT/HCPCS: 72050; 72100; 80053; 80061; 82043; 82570; 83036; 85025

== ENCOUNTER 2024-07-13 08:48 | Outpatient (CLI) | payer MEDICARE, SELFPAY ==
--- NOTE | 2024-07-13 09:00 | XR_ITS ---
FINAL REPORT CLINICAL HISTORY: Chronic back pain, osteoporosis FINDINGS: Using L1-4, the bone mineral density of the spine is 0.815 g/cm2, corresponding to T-score of -2.1. Using the left hip, the bone mineral density of the femoral neck is 0.636 g/cm2, corresponding to a T-score of -1.9. Using the right hip, the bone mineral density of the femoral neck is 0.579 g/cm2, corresponding to a T-score of -2.4. Using the distal third of the right forearm, the bone mineral density of the radius is 0.540, corresponding to a T-score of -2.6. FRAX 10 year fracture risk is 13% for a hip fracture and 3.0% for a major osteoporotic fracture. IMPRESSION: Bone mineral density within the lumbar spine is within the osteopenic range. Bone mineral density of the bilateral femoral necks is within the osteopenic range. Bone mineral density of the right forearm is within the osteoporotic range. NOTE: T-score: Standard deviation compared with peak bone mass of young adult mean. *Following the recommendations of the International Society of Bone densitometry, classification of hip BMD is based on the lower of two T-scores; total hip or femoral neck. Reviewed, Interpreted and Dictated by Lewis Elizondo MD Transcribed by Radha Nolan Authenticated and [facility]
== END 2024-07-13 23:59 | disposition home or self-care (01) ==
LOC: RAD 08:49
PROVIDERS: PCP Internal Medicine; Visit Provider Internal Medicine
DX: M81.0 Age-related osteoporosis without current pathological fracture (principal); M54.9 Dorsalgia, unspecified; G89.29 Other chronic pain
CPT/HCPCS: 77080

== ENCOUNTER 2024-07-16 16:44 | Outpatient (CLI) | payer MEDICARE, SELFPAY ==
--- NOTE | 2024-07-16 17:00 | MR_ITS ---
PROCEDURE INFORMATION: Exam: MR Cervical Spine Without Contrast Exam date and time: 07/16/2024 4:45 PM Age: 74 years old Clinical indication: Cervicalgia; Right arm pain with tingling and burning. Pain between shoulder blades; Additional info: Cervicalgia with radicular pain in right arm TECHNIQUE: Imaging protocol: Magnetic resonance imaging of the cervical spine without contrast. COMPARISON: CR XR CERVICAL SPINE 5V 07/06/2024 10:46 AM FINDINGS: Patient motion. Non-specific straightening. Grade 1 anterolisthesis of C4 on C5 and C5 on C6. Vertebral body heights are preserved. Multilevel disc desiccation. Disc space narrowing with degenerative endplate signal. Negative for discitis/osteomyelitis. No epidural fluid collection. No pathologic cord signal or cord expansion. C2-C3: Mild left-sided uncinate spurring and facet joint arthropathy contributing to mild left foraminal stenosis. No central canal stenosis. C3-C4: Minimal disc osteophyte complex with [id number]-[id number]-left uncinate spurring and facet joint arthropathy contributing to severe right and moderate to severe left foraminal stenosis. No central canal stenosis. C4-C5: Bilateral uncinate spurring and facet joint arthropathy contributing to mild right and moderate to severe left foraminal stenosis. No central canal stenosis. C5-C6: Mild disc osteophyte complex with [id number]-[id number]-yoch-right uncinate spurring and facet joint arthropathy contributing to moderate to severe left and [id number] right foraminal stenosis. No significant central canal stenosis. C6-C7: Disc osteophyte complex with bilateral uncinate spurring and facet joint arthropathy contributing to mild central canal stenosis and moderate to severe bilateral foraminal stenosis. C7-T1: Minor disc osteophyte complex without significant stenosis. IMPRESSION: 1. No acute abnormality involving the cervical spine. 2. Cervical degenerative change as above greatest at C6-C7 where there is mild central canal stenosis and moderate to severe bilateral foraminal stenosis. 3. No high-grade central canal stenosis/cord compression throughout.
== END 2024-07-16 23:59 | disposition home or self-care (01) ==
LOC: RAD 16:45
PROVIDERS: PCP Internal Medicine; Visit Provider Internal Medicine
DX: M47.22 Other spondylosis with radiculopathy, cervical region (principal); Z85.3 Personal history of malignant neoplasm of breast
CPT/HCPCS: 72141

== ENCOUNTER 2024-07-22 09:13 | Outpatient (CLI) | payer MEDICARE, SELFPAY ==
--- NOTE | 2024-07-22 09:30 | MR_ITS ---
FINAL REPORT TECHNIQUE: Multiplanar and multisequence MR imaging was performed through the lumbar spine before and after contrast administration. CLINICAL HISTORY: CHRONIC BACK PAIN ight leg pain nki hx breast cancer COMPARISON: None FINDINGS: There are postoperative changes from posterior fusion at L5-S1. Alignment is normal in the sagittal plane. The vertebral body heights are preserved. There is no bone marrow edema. There is no abnormal bone marrow enhancement. The cord terminates at L1-2. There is normal signal within the distal cord. There is no abnormal enhancement in the distal cord. There is no acute paraspinal abnormality. There is no loculated fluid collection. L1-L2: Annular disc bulge. No central canal stenosis or foraminal narrowing. L2-L3: Mild facet osteoarthropathy. No central canal stenosis or foraminal narrowing. L3-L4: Mild facet osteoarthropathy. No central canal stenosis or foraminal narrowing. L4-L5: Annular disc bulge with degenerative endplate changes and facet osteoarthropathy. No central canal stenosis. Mild bilateral foraminal narrowing. L5-S1: Fused. No central canal stenosis. Evaluation for foraminal narrowing is limited due to artifact. No abnormal enhancement. IMPRESSION: Postoperative changes and mild degenerative disc disease. No abnormal enhancement. Reviewed, Interpreted and Dictated by Yani Khan MD Transcribed by Krupa Ross Authenticated and [facility]
[2024-07-22] MEDS: GADOTERIDOL INJ 20ML SYRINGE 19 ML IV (10:03)
[2024-07-22] MEDS: SODIUM CHLORIDE 0.9% 10ML SYR (RAD ONLY) 10 ML IV (10:03)
== END 2024-07-22 23:59 | disposition home or self-care (01) ==
LOC: RAD 09:13
PROVIDERS: PCP Internal Medicine; Visit Provider Internal Medicine
DX: M54.31 Sciatica, right side (principal); G89.29 Other chronic pain; M54.9 Dorsalgia, unspecified
CPT/HCPCS: 72158; A9576

== ENCOUNTER 2024-08-03 09:02 | Outpatient (POV) | payer MEDICARE, SELFPAY ==
--- NOTE | 2024-08-03 09:12 | A.OFFVIS_ITS ---
HPI Data of Consult Patient: new to practice Consult date: 08/03/24 Requesting Physician: Mojgan Escamilla APRN Primary Care Provider: Efrain Bennett MD Reason for consult: Chronic back pain History of present illness: Ms. Stein is a 74 year old female who presents today as a new patient. She is a referral from Dr. Bennett's office. Today she rates her pain a 7 out of 10. Patient states that she has had chronic back pain for years unrelated to any specific trauma or injury. Patient does state that she is been dealing with low back pain for the longest and that did see even pain management for about 4 years and did injections. Patient did undergo a lumbar fusion years ago. Patient does states she still has that chronic pain that does go down into her legs. Today however she is stating her worst pain is more around her neck and mid back. She describes this as a tingling sensation that is worse with increased activity. Patient does also states she has a lot of muscle cramping that is severe. She states the pain is going from her neck into her right arm and does cause hand numbness. Patient does also believe there is a chance that she has some carpal tunnel related issues and is not quite sure if all of it is coming from her neck or not. Patient has tried oral medications as well as prescription muscle relaxer such as Robaxin with minimal relief. Patient has also done heat and ice and topicals such as blue emu and Biofreeze. Patient has had massage therapy and states that it helps a little bit. Patient has had chiropractor therapy in the past however states that was years ago. Patient does try and stay active and does at home stretching exercise daily. Patient does state the pain is interfering with her ability perform activities of daily living such as cooking and cleaning. Patient states she cannot stand at the sink even to do dishes for very long before she has to stop due to the worsening pain and symptoms.Patient is not on any scheduled medications. Her Willian has been reviewed and is appropriate. Pain at rest (0-10 scale): 7 Has patient had previous pain injection?: No Conservative treatment options previously tried: Home exercise plan (Longer than 12 weeks), Chiropractor, Prescription medications (Longer than 12 weeks) and Massage (Ongoing) cc:: CC: Mojgan Escamilla APRN [facility] Disclaimer: The information contained in this section may have been updated after the patient was seen, as this information can be updated by other users. Medical History (Updated 08/03/24 @ 10:08 by Mojgan Escamilla APRN) Diverticulitis of sigmoid colon Breast cancer Osteoporosis Diverticulitis Barretts esophagus GERD (gastroesophageal reflux disease) HLD (hyperlipidemia) Diabetes HTN (hypertension) Family History (Updated 08/03/24 @ 09:54 by Constance Martinez RN) Other Unknown family medical history Social History (Updated 08/03/24 @ 09:56 by Constance Martinez RN) Smoking Status: Former smoker second hand exposure: No alcohol intake: never substance use type: denies use current occupational status: retired Travel in the last 8 weeks?: None household members: spouse housing: house caffeine: No Contact w/someone who lives/traveled outside [place] past 30 days?: No Exposure to someone with infectious disease in past 14 days?: No Do you have a fever (greater than 100.4 F or 38 C)?: No Have you tested positive for COVID-19?: No Exposed to someone with COVID-19 in past 14 days?: No Do you have a sore throat?: No Do you have a cough?: No Do you have any weakness?: No Are you experiencing any nausea/vomitting?: No Do you have any diarrhea?: No Are you experiencing any unusual bleeding?: No Do you have any muscle aches/pain?: No Do you have any abdominal pain?: No Are you experiencing loss of taste or smell?: No Review of Systems Review of Systems Review of systems:: pertinent systems reviewed and negative unless documented below Review of systems (narrative): Review of Systems: General: No recent weight changes, no fever, no sleep disturbances Respiratory: No cough, no shortness of air, no recurring pulmonary infections Cardiovascular/peripheral vascular: No chest pain, no palpitations, no edema, no shortness of breath Gastrointestinal: No new onset incontinence, normal bowel movements reported Genitourinary: No new onset incontinence Musculoskeletal: Neck pain, right arm numbness tingling, mid back pain, rib pain Psychiatric: [Normal mood/affect] Neurological: [Denies weakness in extremities], [denies balance issues] Meds Home Medications and Allergies Home Medications ?Medication ?Instructions ?Recorded ?Confirmed ?Type diclofenac sodium 75 mg 75 mg PO BID Arthritis 90 days 02/22/18 08/03/24 History tablet,delayed release coenzyme Q10 100 mg capsule 100 mg PO DAILY Supplement 11/17/19 08/03/24 History ferrous sulfate 325 mg (65 mg 325 mg PO DAILY anemia 11/17/19 08/03/24 History iron) tablet fluticasone propionate 50 2 spray intranasal BID #16 grams 03/01/21 08/03/24 Rx mcg/actuation nasal spray,suspension (Flonase Allergy Relief) turmeric 100 mg-oleg 150 1 cap PO DAILY 03/01/21 08/03/24 History mg-olive 50 mg-oreg 150 mg-capryl capsule albuterol sulfate 90 mcg/actuation 2 puff inhalation QID PRN 10/02/23 08/03/24 Rx aerosol inhaler shortness of breath or wheezing #8.5 grams azelastine 205.5 mcg (0.15 %) 2 spray intranasal BID #30 mL 10/02/23 08/03/24 Rx nasal spray amoxicillin 875 mg-potassium 1 tab PO BID #20 tabs 10/10/23 08/03/24 Rx clavulanate 125 mg tablet omeprazole 20 mg capsule,delayed See Rx Instructions .Route 03/17/24 08/03/24 Rx release .COMPLEX #180 caps atorvastatin 40 mg tablet See Rx Instructions .Route 06/17/24 08/03/24 Rx .COMPLEX #90 tabs diltiazem HCl 120 mg See Rx Instructions .Route 06/17/24 08/03/24 Rx capsule,extended release 12 hr .COMPLEX #180 caps duloxetine 60 mg capsule,delayed See Rx Instructions .Route 06/17/24 08/03/24 Rx release .COMPLEX #90 caps losartan 100 mg tablet See Rx Instructions .Route 06/17/24 08/03/24 Rx .COMPLEX #90 tabs metformin 500 mg tablet See Rx Instructions .Route 06/17/24 08/03/24 Rx .COMPLEX #180 tabs New Prescriptions to Start Prescriptions: Allergies Allergy/AdvReac Type Severity Reaction Status Date / Time No Known Allergies Allergy Verified 07/06/24 10:04 Objective Narrative: Physical Exam: General: Alert and oriented x3, no acute distress, pleasant and cooperative Lungs: Respirations even and unlabored, symmetrical chest expansion Eyes: PERRL Musculoskeletal: Flexion and extension of cervical [spine] somewhat guarded secondary to pain, [antalgic gait noted] positive Spurling's test, patient did also have point tenderness along her right trapezius and right rhomboid muscles Neurological: Speech clear, no gross sensory deficit Additional findings Additional findings: FINDINGS: Patient motion. Non-specific straightening. Grade 1 anterolisthesis of C4 on C5 and C5 on C6. Vertebral body heights are preserved. Multilevel disc desiccation. Disc space narrowing with degenerative endplate signal. Negative for discitis/osteomyelitis. No epidural fluid collection. No pathologic cord signal or cord expansion. C2-C3: Mild left-sided uncinate spurring and facet joint arthropathy contributing to mild left foraminal stenosis. No central canal stenosis. C3-C4: Minimal disc osteophyte complex with shdsf-dakmdjr-ekva-left uncinate spurring and facet joint arthropathy contributing to severe right and moderate to severe left foraminal stenosis. No central canal stenosis. C4-C5: Bilateral uncinate spurring and facet joint arthropathy contributing to mild right and moderate to severe left foraminal stenosis. No central canal stenosis. C5-C6: Mild disc osteophyte complex with ludo-zisbzvs-wuat-right uncinate spurring and facet joint arthropathy contributing to moderate to severe left and ungv-og-szvgjiaj right foraminal stenosis. No significant central canal stenosis. C6-C7: Disc osteophyte complex with bilateral uncinate spurring and facet joint arthropathy contributing to mild central canal stenosis and moderate to severe bilateral foraminal stenosis. C7-T1: Minor disc osteophyte complex without significant stenosis. IMPRESSION: 1. No acute abnormality involving the cervical spine. 2. Cervical degenerative change as above greatest at C6-C7 where there is mild central canal stenosis and moderate to severe bilateral foraminal stenosis. 3. No high-grade central canal stenosis/cord compression throughout. INGS: There are postoperative changes from posterior fusion at L5-S1. Alignment is normal in the sagittal plane. The vertebral body heights are preserved. There is no bone marrow edema. There is no abnormal bone marrow enhancement. The cord terminates at L1-2. There is normal signal within the distal cord. There is no abnormal enhancement in the distal cord. There is no acute paraspinal abnormality. There is no loculated fluid collection. L1-L2: Annular disc bulge. No central canal stenosis or foraminal narrowing. L2-L3: Mild facet osteoarthropathy. No central canal stenosis or foraminal narrowing. L3-L4: Mild facet osteoarthropathy. No central canal stenosis or foraminal narrowing. L4-L5: Annular disc bulge with degenerative endplate changes and facet osteoarthropathy. No central canal stenosis. Mild bilateral foraminal narrowing. L5-S1: Fused. No central canal stenosis. Evaluation for foraminal narrowing is limited due to artifact. No abnormal enhancement. IMPRESSION: Postoperative changes and mild degenerative disc disease. No abnormal enhancement. Reviewed, Interpreted and Dictated by Yani Khan MD Transcribed by Krupa Ross Authenticated and [facility] Assessment and Plan *Assessment and plan (1) Chronic back pain: Status: Acute Category: Medical Code(s): M54.9 - Dorsalgia, unspecified; G89.29 - Other chronic pain (2) Cervical spondylosis with radiculopathy: Status: Chronic Category: Medical Code(s): M47.22 - Other spondylosis with radiculopathy, cervical region (3) Degenerative disc disease: Status: Acute Category: Medical (4) Mid back pain: Status: Acute Category: Medical Code(s): M54.9 - Dorsalgia, unspecified (5) Thoracic radiculopathy: Status: Acute Category: Medical Code(s): M54.14 - Radiculopathy, thoracic region (6) Lumbosacral spondylosis without myelopathy: Status: Chronic Category: Medical Code(s): M47.817 - Spondylosis without myelopathy or radiculopathy, lumbosacral region Plan Patient is experiencing worsening pain in their neck with radiating tingling and burning sensations into her upper right extremity. Patient did have limited range of motion of her cervical spine with a positive Spurling's test. I did review over her last imaging that did show more severe narrowing at the C6-C7 level. I did discuss with the patient that I do believe they would benefit from a cervical epidural steroid injection. Risk and benefits were discussed with patient and they would like to proceed forward with this plan of care. Patient has tried and failed conservative therapy including oral medications, heat and ice, topicals,, massage therapy and at home stretching exercise for longer than 12 weeks that was physician guided. Patient has not had any cervical epidurals in the past. Patient will be scheduled for a QUINTON C6 or C7 under fluoroscopy. Patient denies any blood thinners. I will order the patient a compounded cream and due to her worsening mid back pain that does radiate into her ribs I will also go ahead and order x-ray imaging and MRI without contrast to follow. We will follow-up on this in future. Patient has been instructed to contact the clinic with any concerns before the next appointment. Dr. Mahajan has reviewed this note and agrees with this plan of care. This note was dictated using voice recognition software and make contain errors or omissions. All injections are used with Lidocaine, Bupivacaine and dexamethasone unless otherwise stated as a diagnostic in which it has no steroid. Occasionally urine drug screen is needed to verify patient's compliance with our office pain contract. This is ordered based off specific treatments related to chronic pain with the potential to abuse certain medications. Patient has been instructed to contact the clinic with any concerns before the next appointment. Dr. Mahajan has reviewed this note and agrees with this plan of care. This note was dictated using voice recognition software and make contain errors or omissions. All injections are used with Lidocaine, Bupivacaine and dexamethasone. Occasionally urine drug screen is needed to verify patient's compliance with our office pain contract. This is ordered based off specific treatments related to chronic pain with the potential to abuse certain medications.
[2024-08-03 09:39] VITALS: BP 140/78; PULSE 89; RESP 18; O2SAT 95; BMI 39.4
--- NOTE | 2024-08-03 09:56 | XR_ITS ---
FINAL REPORT CLINICAL HISTORY: Mid back pain COMPARISON: 10/11/2021 FINDINGS: 3 views of the thoracic spine were obtained. There is no acute fracture. There is no malalignment. The vertebrae are normal in height. The disc spaces are preserved. There is mild osteophyte formation at the right lateral margin of the mid thoracic vertebra. IMPRESSION: Degenerative changes without acute process. Reviewed, Interpreted and Dictated by Lewis Elizondo MD Transcribed by Ivone Way Authenticated and [facility]
== END 2024-08-03 23:59 | disposition home or self-care (01) ==
PROVIDERS: PCP Internal Medicine; Visit Provider Nurse Practitioner Family
DX: M54.9 Dorsalgia, unspecified (principal); G89.29 Other chronic pain; M47.22 Other spondylosis with radiculopathy, cervical region; M47.817 Spondylosis without myelopathy or radiculopathy, lumbosacral region; Z73.89 Other problems related to life management difficulty; Z87.891 Personal history of nicotine dependence
CPT/HCPCS: 72072; 99202; G0463

== ENCOUNTER 2024-08-12 06:45 | Outpatient (CLI) | payer MEDICARE, SELFPAY ==
--- NOTE | 2024-08-12 06:48 | MR_ITS ---
FINAL REPORT CLINICAL HISTORY: mid back pain worse on right side tingling left side of back nki symptoms for years COMPARISON: None FINDINGS: Multiplanar MR imaging of the thoracic spine was performed without contrast. On the sagittal T2-weighted images, degeneration is noted throughout the thoracic discs. There is no evidence of fracture. The vertebral alignment is normal. No bony mass is identified. The thoracic spinal cord has an unremarkable appearance without evidence of mass, edema or syrinx. On the axial images, at T3-4 there is right paracentral disc protrusion with mild compromise of the right lateral recess. At T4-5, there is moderate right paracentral disc protrusion with moderate compromise of the right lateral recess. At T5-6, there is moderate diffuse disc bulge with endplate hypertrophy, mild spinal canal compromise, and moderate to high-grade bilateral neuroforaminal narrowing. T6-7 and T7-8 levels are unremarkable. At T8-9, there is a small midline disc protrusion with mild to moderate spinal canal compromise. At T9-10, there is moderate focal midline disc protrusion/extrusion with mild to moderate spinal canal compromise with the extruded disc appearing to extend superiorly from the disc space. This is well-seen on image 8 of series 7 and axial images 10 through 12 of series 10. At T10-11, there is a smaller superior disc extrusion. IMPRESSION: Unremarkable thoracic spine without evidence of acute bony abnormality, disc protrusion or canal stenosis. Reviewed, Interpreted and Dictated by Lewis Elizondo MD Transcribed by Krupa Ross Authenticated and [facility]
== END 2024-08-12 23:59 | disposition home or self-care (01) ==
LOC: RAD 06:46
PROVIDERS: PCP Internal Medicine; Visit Provider Nurse Practitioner Family
DX: M54.89 Other dorsalgia (principal)
CPT/HCPCS: 72146

== ENCOUNTER 2024-09-01 10:52 | Day surgery (SDC) | payer MEDICARE, SELFPAY ==
[2024-09-01] MEDS: IOPAMIDOL-200 (41%);10ML VIAL 10 ML IV (10:55)
[2024-09-01 10:59] VITALS: BP 124/71; PULSE 77; RESP 16; TEMP 36.6; O2SAT 97; BMI 39.0
--- NOTE | 2024-09-01 11:18 | P.PCN_ITS ---
Procedure Date: 09/01/24 Time: 11:00 Anesthesiologist:: Mann Tom CRNA Complications:: None Pre-procedure Diagnosis:: Degenerative disc cervical spine multilevels. Cervical radiculopathy. Cervical disc bulge C6-7. Post-procedure Diagnosis:: Same. Indications for Procedure:: Patient is a very pleasant 74-year-old female who comes our clinic today for cervical epidural steroid injection. Patient describes posterior cervical neck pain as slight. However, she reports right arm and hand radicular symptoms. This is described as tingling sensation. Procedure Details:: Procedure:Cervical epidural steroid injection Informed consent was obtained and the risks and benefits of the procedure were explained to the patient. The patient was taken to the procedure room and noninvasive monitors placed, including noninvasive blood pressure cuff and pulse oximeter. The neck was prepped using Chloraprep as a cleansing solution. The C6- C7 interspace was viewed using fluroscopy. The skin and subcutaneous tissues were anesthetized using lidocaine 1.5% and a 25-gauge needle. After this an 18- gauge Touhy epidural needle was placed into the C6-C7 interspace under fluroscopy guidance and advanced using loss of resistance to air until the ep idural space was encountered. After confirmation of needle placement in the epidural space using contrast dye, a solution containing normal saline, 2 mL and Depo-Medrol 80 mg was incrementally injected into the cervical epidural space.~ The patient tolerated the procedure well with no complications. The patient was observed in the Pain Clinic and then discharged home neurologically intact. Plan and Disposition:: Patient was discharged without incident.
[2024-09-01 11:19] VITALS: BP 137/79; PULSE 81; RESP 16; O2SAT 95
[2024-09-01 12:02] VITALS: BP 124/71; PULSE 77; RESP 18; O2SAT 96
[2024-09-01] MEDS: DEXAMETHASONE 10MG/ML 1ML VIAL 10 MG (12:02)
[2024-09-01 12:06] VITALS: BP 124/71; PULSE 77; RESP 18; O2SAT 96
== END 2024-09-01 11:19 | disposition home or self-care (01) ==
PROVIDERS: PCP Internal Medicine; Visit Provider Nurse Anesthetist, Certified Registered
DX: M47.22 Other spondylosis with radiculopathy, cervical region (principal); M47.27 Other spondylosis with radiculopathy, lumbosacral region; M50.123 Cervical disc disorder at C6-C7 level with radiculopathy; Z98.1 Arthrodesis status; E78.5 Hyperlipidemia, unspecified; M81.0 Age-related osteoporosis without current pathological fracture; K21.9 Gastro-esophageal reflux disease without esophagitis; E11.9 Type 2 diabetes mellitus without complications; I10 Essential (primary) hypertension; Z87.891 Personal history of nicotine dependence; Z79.1 Long term (current) use of non-steroidal anti-inflammatories (NSAID); Z79.899 Other long term (current) drug therapy; Z79.84 Long term (current) use of oral hypoglycemic drugs; Z79.83 Long term (current) use of bisphosphonates
CPT/HCPCS: 62321; J1100; Q9966

== ENCOUNTER 2024-09-24 14:09 | Outpatient (POV) | payer MEDICARE, SELFPAY ==
--- OUTSIDE RECORDS SUMMARY | 2024-08-26 14:39 | XMS_ITS | Encounter Summary ---
Author Organization [facility] Address [address] [place] [address] Care Team Providers Care Land Title Examiner Name Role Phone Efrain Bennett MD Primary Care Provider [phone] Reason for Referral * Imaging (Routine) - Closed Specialty Diagnoses / Procedures Referred By Kieran rodriguez Referred To Contact Gastroenterology Diagnoses History of Avila's esophagus Procedures EGD Marco Patino MD [address] [address] Phone: tel: fax: Referral ID Status Reason Start Date Expiration Date V isits Requested Visits Authorized [id number] Closed Specialty Services Required 02/27/2024 08/28/2025 1 1 Reason for Visit * Imaging (Routine) - Closed Specialty Diagnoses / Procedures Referred By Kieran rodriguez Referred To Contact Gastroenterology Diagnoses History of Avila's esophagus Procedures EGD Marco Patino MD [address] [address] Phone: tel: fax: Referral ID Status Reason Start Date Expiration Date V isits Requested Visits Authorized [id number] Closed Specialty Services Required 02/27/2024 08/28/2025 1 1 Encounter Details Date Type Department Care Team (Latest Contact Info) Description 08/26/2024 2:39 PM EDT - 08/26/2024 11:59 PM EDT Hospital Encounter [facility] Endoscopy [address] [place] [address] Blank Gonzalez MD [address] [place] [address] Des Gray, DO [address] [place] [address] Eloy Momin, BROWNELL OPERATOR [address] [place] [address] Diana Sims RN History of Avila's esophagus Discharge Disposition: Home or Self Care Social History Tobacco Use Types Packs/Day Years Used Date Smoking Tobacco: Former Cigarettes 0.5 20 1 3 - 2002 Smokeless Tobacco: Never Alcohol Use Standard Drinks/Week Comments No 0 (1 standard drink = 0.6 oz pur e alcohol) Comments No Sex and Gender Information Value Date Recorded Sex Assigned at Not on file Legal Sex Female 8:19 PM EDT Gender Identity Not on file Sexual Orientation Not on file documented as of this encounter Last Filed Vital Signs Vital Sign Reading Time Taken Comments Blood Pressure 119/60 08/26/2024 4:55 PM EDT Pulse 77 08/26/2024 4:55 PM EDT Temperature 36.3 C (97.3 F) 08/26/2024 4:37 PM EDT Respiratory Rate 14 08/26/2024 4:55 PM EDT Oxygen Saturation 100% 08/26/2024 4:55 PM EDT Inhaled Oxygen Concentration - - Weight 91.1 kg (200 lb 13.4 oz) 08/26/2024 3:00 PM EDT Height 152.4 cm (5') 08/26/2024 3:00 PM EDT Body Mass Index 39.22 08/26/2024 3:00 PM EDT documented in this encounter Medications at Time of Discharge acetaminophen (Tylenol 8 Hour) 650 MG ER tablet Take 2 tablets by mouth daily. Do not crush, chew, or split. aspirin 81 MG EC tablet Take 1 tablet (81 mg) by mouth 1 (one) time each day. atorvastatin (Lipitor) 40 MG tablet Take 1 tablet by mouth nightly. cefdinir (Omnicef) 300 MG capsule Take 1 capsule (300 mg) by mouth 2 (two) times a day. Coenzyme Q10 (CoQ10) 200 MG capsule Take by mouth 1 (one) time each day. dilTIAZem SR (Cardizem SR) 120 MG 12 hr capsule Take 1 capsule by mouth 2 times a day. DULoxetine (Cymbalta) [address] capsule Take 1 capsule by mouth nightly. Do not crush or chew. fluticasone (Flonase) 50 MCG/ACT nasal spray Administer 1 spray into each nostril 2 times a day. Shake gently. Before first use, prime pump. After use, clean tip and replace cap. Lsas-Mtssz-IZW-B oswellia-Vit D (GLUCOS CHONDROIT, BOSWELLIA, PO) Take 500 mg by mouth 1 (one) time each day. losartan (Cozaar) 100 MG tablet Take 1 tablet by mouth daily. metFORMIN (Glucophage) 500 MG tablet Take 1 tablet by mouth 2 times a day with meals. methocarbamol (Robaxin) 750 MG tablet Take 1 tablet (750 mg) by mouth 3 (three) times a day if needed for muscle spasms. omeprazole (PriLOSEC) [address] capsule Take 1 capsule by mouth 2 times a day. Do not crush or chew. Turmeric (QC TUMERIC COMPLEX PO) Take 1,000 mg by mouth 1 (one) time each day. documented as of this encounter Miscellaneous Notes * H&P - Azucena Haile MD - 08/26/2024 3:50 PM EDT Gastroenterology, Hepatology and Nutrition Pre-Endoscopy History & Physical Patient: Ingrid Stein Date of : 1950 Attending: No att. providers found Date of Visit: August 26, 2024 Chief Complaint/Reason for Visit: EGD SUBJECTIVE: History of Present Illness: Ms. Ingrid Stein is a 74 y.o. female here today for EGD. She has a past medical historyof Cancer (CMS/[facility]), Diabetes mellitus (CMS/HCC), Diverticulitis, GERD (gastroesophageal reflux disease), Hernia, internal, Hypertension, Irritable bowel syndrome, Personal history of malignant neoplasm of breast, Personal history of other diseases of the circulatory system, Personal history of other diseases of the digestive system, Personal history of other diseases of the digestive system, Personal history of other diseases of the digestive system, Personal history of other diseases of the digestive system, Personal history of other endocrine, nutritional and metabolic disease, and Personal history of urinary calculi. Ms. Ingrid Stein is NPO. Anticoagulation and antiplatelet medications: none Last dose: not applicable ROS: Gen: No headache, fever, chills. CV: No chest pain, shortness of breath. Resp: No shortness of breath. No cough. GI: No abdominal pain, nausea, vomiting, constipation, diarrhea, GI bleeding. Allergies[1] Current Outpatient Medications Medication Instructions acetaminophen (TYLENOL 8 HOUR) 1,300 mg, Daily aspirin 81 mg, Oral, Daily atorvastatin (LIPITOR) 40 mg, Nightly cefdinir (OMNICEF) 300 mg, Oral, 2 times daily Coenzyme Q10 (CoQ10) 200 MG capsule Daily dilTIAZem SR (CARDIZEM SR) 120 mg, Oral, 2 times daily DULoxetine (CYMBALTA) 60 mg, Nightly fluticasone (Flonase) 50 MCG/ACT nasal spray 1 spray, 2 times daily Qwwa-Ysbaq-PZN-Boswellia-Vit D (GLUCOS CHONDROIT, BOSWELLIA, PO) 500 mg, Oral, Daily losartan (COZAAR) 100 mg, Daily metFORMIN (GLUCOPHAGE) 500 mg, 2 times daily with meals methocarbamol (ROBAXIN) 750 mg, 3 times daily PRN omeprazole (PRILOSEC) 20 mg, 2 times daily Turmeric (QC TUMERIC COMPLEX PO) 1,000 mg, Daily Past Medical History[2] Surgical History[3] Family History[4] Social History[5] OBJECTIVE: Physical Exam: General Appearance: Patient in no distress. Alert, awake and oriented x 3 Eyes: Anicteric Neck: Neck supple Lungs: Lungs clear to auscultation, no wheezing, rales, rhonchi Heart: Regular rate and rhythm Abdomen: Abdomen soft, non-tender. No rebound or guarding. Laboratory/Imaging/Pathology: No results for input(s): HGB , PLT , APTT , INR , PTT , BILITOT , BILIDIR in the last 72 hours. ASSESSMENT & PLAN: Ms. Ingrid Stein is a 74 y.o. female here today for EGD. She has a past medical historyof Cancer (CMS/HCC), Diabetes mellitus (CMS/HCC), Diverticulitis, GERD (gastroesophageal reflux disease), Hernia, internal, Hypertension, Irritable bowel syndrome, Personal history of malignant neoplasm of breast, Personal history of other diseases of the circulatory system, Personal history of other diseases of the digestive system, Personal history of other diseases of the digestive system, Personal history of other diseases of the digestive system, Personal history of other diseases of the digestive system, Personal history of other endocrine, nutritional and metabolic disease, and Personal history of urinary calculi. 1) Avila's esophagus with low grade dysplasia. PLAN: - Continue NPO - PIV - Obtain consent - Proceed with plans for EGD - The risks, benefits, potential complications, limitations and alternatives to the procedure were discussed, including but not limited to pain, bloating, bleeding, infection, perforation, clinical deterioration, pancreatitis, aspiration, cardiopulmonary and cerebrovascular events, need for emergency surgery and even . The informed consent was signed by myself and the patient. Azucena Haile MD [1] No Known Allergies [2] Past Medical History: Diagnosis Date Cancer (CMS/HCC) breast cancer Diabetes mellitus (CMS/HCC) Diverticulitis GERD (gastroesophageal reflux disease) Hernia, internal Hypertension Irritable bowel syndrome Personal history of malignant neoplasm of breast History of malignant neoplasm of breast Personal history of other diseases of the circulatory system History of hypertension Personal history of other diseases of the digestive system History of Avila's esophagus Personal history of other diseases of the digestive system History of gastroesophageal reflux (GERD) Personal history of other diseases of the digestive system History of hiatal hernia Personal history of other diseases of the digestive system History of irritable bowel syndrome Personal history of other endocrine, nutritional and metabolic disease History of hyperlipidemia Personal history of urinary calculi History of renal calculi [3] Past Surgical History: Procedure Laterality Date ADENOIDECTOMY N/A Adenoidectomy from [facility] ANKLE SURGERY N/A Ankle Surgery from [facility] APPENDECTOMY N/A Appendectomy from [facility] BREAST LUMPECTOMY Left Left Breast Lumpectomy and 1 lymphnode CHOLECYSTECTOMY N/A Cholecystectomy from [facility] COLON SURGERY sigmoid remove LITHOTRIPSY N/A Renal Lithotripsy from [facility] LUMBAR FUSION N/A Lumbar vertebral fusion from [facility] LYMPHADENECTOMY N/A Lymphadenectomy from [facility] TONSILLECTOMY N/A Tonsillectomy from [facility] [4] Family History Problem Relation Name Age of Onset Breast cancer Mother Colon cancer Father Anesthesia problems Neg Hx Malig Hyperthermia Neg Hx [5] Social History Socioeconomic History Marital status: Tobacco Use Smoking status: Former Current packs/day: 0.00 Average packs/day: 0.5 packs/day for 20.0 years (10.0 ttl pk-yrs) Types: Cigarettes Start date: 1982 Quit date: 2002 Years since quittin.4 Smokeless tobacco: Never Vaping Use Vaping status: Never Used Substance and Sexual Activity Alcohol use: No Drug use: No Comment: Drug use: No illicit drug use Sexual activity: Defer Social Drivers of Health Received from [facility] Family and Community Support Received from [facility] Abuse Screen Received from [facility] Housing Stability Cosigned by Blank Gonzalez MD at 08/26/2024 3:56 PM EDT * Martina Schuler RN - 08/26/2024 3:43 PM EDT Images from the original note were not included. [id number] Endoscopy Unit: Caring for Yourself after an Esophogastroduodenoscopy (EGD) What precautions do I need to take after my procedure? You will get a medicine that makes you sleep during treatment. It may affect you for the next 24 hours. ? Do not drive or go home alone. Someone must be with you until you get home. ? For 24 hours, do not make legal decisions, drive, or use dangerous equipment. ? You may continue taking your home medicines, unless your doctor tells you otherwise. When can I eat or drink? You may eat your normal diet, unless otherwise told by your doctor. Start with a small amount of bland foods and add other foods as tolerated. Spicy or greasy foods may cause nausea. How active can I be? You should move around as you are able. Do your normal activities if you feel you can. Sexual activity is fine, unless your doctor tells you otherwise. How do I find out my biopsy results? If you had a biopsy, it may take 7-10 days for results. These will be available in the patient portal, [facility]. Or you can call the doctor who ordered your procedure. When should I call the doctor? Call 911 right away or go to the nearest emergency department if you have any of these: ? Difficulty breathing ? Severe pain in the throat ? Severe pain in the chest or belly ? Vomiting that does not go away ? Fever of 101??F or higher ? Redness or tenderness of the IV site that lasts longer than 48 hours ? Any other symptoms that concern you These may be related to a complication and need medical attention. If you do not tell your doctor, the problem may get worse. Our contact information: For the Endoscopy Provider, call and ask for the Endoscopy Fellow on-call. * Ravi DiazHUGO - Martina Morrow RN - 08/26/2024 3:43 PM EDT Images from the original note were not included. [id number] Anesthesia: General Anesthesia You?re due to have surgery. During surgery, you?ll be given medicine called anesthesia or anesthetic. This will keep you comfortable and pain-free. Your anesthesia provider will use general anesthesia . You are watched continuously during your procedure by your anesthesia provider. What is general anesthesia? General anesthesia puts you into a state like deep sleep. It goes into the bloodstream (IV anesthetics), into the lungs (gas anesthetics),or both. You feel nothing during the procedure. You won't remember it either. During the procedure, the anesthesia provider monitors you continuously. They trackyour heart rate and rhythm, blood pressure, breathing, and blood oxygen. ? IV anesthetics. IV anesthetics are given through an IV (intravenous) line in your arm. They?re often given first. This is so you're asleep before a gas anesthetic is started. Some kinds of IV anesthetics ease pain. Others relax you. Your healthcare provider will decide which kind is best in your case. ? Gas anesthetics. Gas anesthetics are breathed into the lungs. They're often used to keep you asleep. They can be given through a face mask. Or they can be given through a tube placed in your voice box (larynx) or breathing tube (trachea). o Face mask. Your anesthesia provider will most likely place the face mask over your nose and mouthwhile you?re still awake. You?ll breathe oxygen through the mask as your IV anesthetic is started. Gas anesthetic may be added through the mask. o Tube in the larynx or trachea. The tube will be inserted into your throat after you?re asleep. Anesthesia tools and medicines You will likely have: ? IV anesthetics. These are put into an IV line into your bloodstream. ? Gas anesthetics. You breathe these anesthetics into your lungs. Then they pass into your bloodstream. ? Pulse oximeter. This is a small clip that's attached to the end of your finger. It measures your blood oxygen level. ? Electrocardiography leads (electrodes). These are small sticky pads that are placed on your chest. They record your heart rate and rhythm. ? Blood pressure cuff. This reads your blood pressure. Risks and possible complications General anesthesia has some risks. These include: ? Breathing problems ? Upset stomach (nausea) and vomiting ? Sore throat or hoarseness (usually temporary) ? Allergic reaction to the anesthetic ? Irregular heartbeat (rare) ? Cardiac arrest (rare) Anesthesia safety ? Follow any directions you're given for not eating or drinking before your procedure. ? Tell your healthcare provider what medicines you take. This includes prescription and ridg-jnt-ecuosud medicines. It also includes vitamins, herbs, and other supplements. You'll be asked when thosewere last taken. ? Have a trusted adult drive you home after the procedure. ? For the first 24 hours after your surgery: o Don't drive or use heavy equipment. o Don't make important decisions or sign legal documents. If important decisions or signing legal documents is necessary during the first 24 hours after surgery, have a trusted family member or spouse act on your behalf. o Don't drink alcohol. o Have a responsible adult stay with you. They can watch for problems and help keep you safe. Last Reviewed Date: 2023 00:00:00 ?? [id number] [employer], [employer]. All rights reserved. This information is not intended as a substitute for professional medical care. Always follow your healthcare professional's instructions. documented in this encounter Plan of Treatment Upcoming Encounters Date Type Department Care Team (Late st Contact Info) Description 11/10/2024 8:00 AM EDT Ovarian Cancer Screening [facility] Gynecology [address] [facility], [address]rd [place] [address] documented as of this encounter Procedures Procedure Name Priority Date/Time Associated Diagnosis Comments EGD Routine 08/26/2024 4:36 PM EDT History of Avila's esophagus SURGICAL PATHOLOGY EXAM Routine 08/26/2024 4:24 PM EDT History of Avila's esophagus documented in this encounter Results * EGD (08/26/2024 4:36 PM EDT) Anatomical Region Laterality Modality Endoscopy Narrative 08/26/2024 5:35 PM EDT Table formatting from the original result was not included. Impression: The upper third of the esophagus, middle third of the esophagus and lower third of the esophagus appeared normal. 4 cm sliding hiatal hernia (type I hiatal hernia) without Brandon lesions present. Hernia was extremely mobile. GE junction located at 39. Very mobile area, Z line at 37 cm. Carefully examined using cap in both direct view and retroflexion using white light and NBI. No nodules or abnormality seen. Biopsies were obtained from the junction and from 38 cm, 37 cm, and 36 cm (from four quadrants). Please note because of sliding hiatal hernia and difficulty definitively identifying end of gastric folds, 39 and 38 likely reflect biopsies from hiatal hernia. The stomach appeared normal. The duodenal bulb and 2nd part of the duodenum appeared normal. Recommendations Await pathology results Avila's esophagus surveillance Repeat EGD in 1 year, due: 08/26/2025 - Follow-up with referring provider. - Resume previous diet today - Resume previous activity tomorrow. - Monitor for signs of bleeding and if any vomiting of red blood, dark blood, clots, coffee ground-like material, stool with red blood, or dark black, tarry, sticky stools present immediately to your nearest emergency department and make them aware of this procedure. - Discharge home today, with escort. - Findings and recommendations discussed with patient and family. - Continue daily, high dose PPI. Indication History of Avila's esophagus Medications See anesthesia record for anesthesia administered medications. Staff Staff Role Azucena Haile MD Proceduralist Eloy Momin CRNA CRNA Cauthen, Benton R, DO Anesthesiologist Blank Gonzalez MD Proceduralist Diana Sims, COLIN Endo Nurse Beau Sparks Endo Hooker Operator Preprocedure A history and physical has been performed, and patient medication allergies have been reviewed. The patient's tolerance of previous anesthesia has been reviewed. The risks and benefits of the procedure and the sedation options and risks were discussed with the patient. All questions were answered and informed consent obtained. Details of the Procedure The patient underwent monitored anesthesia care, which was administered by an anesthesia professional. The patient's blood pressure, heart rate, level of consciousness, oxygen saturation and respirations were monitored throughout the procedure. The scope was introduced through the mouth and advanced to the second part of the duodenum. Retroflexion was performed in the cardia. The patient's estimated blood loss was minimal. The procedure was not difficult. The patient tolerated the procedure well. There were no apparent adverse events. Attestation I was present for the entire procedure Specimens ID Type Source Tests Collected by Time A : Esophageal Bx- 39cm Tissue Esophagus SURGICAL PATHOLOGY EXAM Blank Gonzalez MD 08/26/2024 1624 B : Esophageal Bx- 38cm Tissue Esophagus SURGICAL PATHOLOGY EXAM Blank Gonzalez MD 08/26/2024 1626 C : Esophageal Bx- 37cm Tissue Esophagus SURGICAL PATHOLOGY EXAM Blank Gonzalez MD 08/26/2024 1629 D : Esophageal Bx- 36cm Tissue Esophagus SURGICAL PATHOLOGY EXAM Blank Gonzalez MD 08/26/2024 1630 Findings The upper third of the esophagus, middle third of the esophagus and lower third of the esophagus appeared normal. 4 cm sliding hiatal hernia (type I hiatal hernia) without Brandon lesions present. Hernia was extremely mobile. GE junction located at 39. Very mobile area, Z line at 37 cm. Carefully examined using cap in both direct view and retroflexion using white light and NBI. No nodules or abnormality seen. Biopsies were obtained from the junction and from 38 cm, 37 cm, and 36 cm (from four quadrants). Please note because of sliding hiatal hernia and difficulty definitively identifying end of gastric folds, 39 and 38 likely reflect biopsies from hiatal hernia. The stomach appeared normal. The duodenal bulb and 2nd part of the duodenum appeared normal. us Marco Patino MD GI PROCEDURE ORDERABLES Fin al Result * Surgical Pathology Exam (08/26/2024 4:24 PM EDT) Case Report Surgical Pathology Case: [id number] Authorizing Provider: Blank Gonzalez MD Collected: 08/26/2024 1624 Ordering Location: [facility] Endoscopy Received: 08/27/2024 0603 Pathologist: Skyler Barreto DO Specimens: A) - Esophagus, Esophageal Bx- 39cm B) - Esophagus, Esophageal Bx- 38cm C) - Esophagus, Esophageal Bx- 37cm D) - Esophagus, Esophageal Bx- 36cm 08/28/2024 8:45 AM EDT [facility] Final Diagnosis A. ESOPHAGUS, 39 CM, BIOPSY: - GASTRIC TYPE MUCOSA; NEGATIVE FOR INTESTINAL METAPLASIA OR DYSPLASIA. B. ESOPHAGUS, 38 CM, BIOPSY: - GASTRIC TYPE MUCOSA; NEGATIVE FOR INTESTINAL METAPLASIA OR DYSPLASIA. C. ESOPHAGUS, 37 CM, BIOPSY: - INFLAMED GASTRIC TYPE MUCOSA; NEGATIVE FOR INTESTINAL METAPLASIA OR DYSPLASIA. D. ESOPHAGUS, 36 CM, BIOPSY: - INFLAMED SQUAMOCOLUMNAR MUCOSA; NEGATIVE FOR INTESTINAL METAPLASIA OR DYSPLASIA. 08/28/2024 8:45 AM EDT [facility] at 0845 EDT Clinical Information Z87.19 - History of Avila's esophagus [ICD-10-CM] EGD findings: - GE junction located at 39. Very mobile area, Z line at 37 cm. Carefully examined using cap in both direct view and retroflexion using white light and NBI. No nodules or abnormality seen. Biopsies were obtained from the junction and from 38 cm, 37 cm, and 36 cm (from four quadrants). 08/28/2024 8:45 AM EDT [facility] Gross Description A. ESOPHAGEAL BX- 39CM Received in formalin labeled e sophageal biopsy-39 cm , are 3 garrido-brown soft tissue fragments that range from 0.2-0.5 cm in greatest dimension. Entirely submitted in cassette A1. Cold Time: <1m Suzanna B Pettey B. ESOPHAGEAL BX- 38CM Received in formalin labeled e sophageal biopsy-38 cm , are 4 white-garrido soft tissue fragments that range from 0.2-0.6 cm in greatest dimension. Entirely submitted in cassette B1. Cold Time: <1m Suzanna B Pettey C. ESOPHAGEAL BX- 37CM Received in formalin labeled esophageal biopsy-37 cm , are 4 pink-garrido soft tissue fragments that range from 0.1-0.3 cm in greatest dimension. Entirely submitted in cassette C1. Cold Time: <1m Suzanna B Pettey D. ESOPHAGEAL BX- 36CM Received in formalin labeled esophageal biopsy-36 cm , are 3 white-garrido soft tissue fragments that range from 0.2-0.5 cm in greatest dimension. Entirely submitted in cassette D1. Cold Time: <1m Suzanna B Pettey 08/28/2024 8:45 AM EDT [facility] Note: A resident was involved in the service. I attest I examined the relevant preparations for the specimens and confirmed the diagnosis or interpretation. 08/28/2024 8:45 AM EDT [facility] Tissue Esophageal structure / Unknown 08/26/2024 4:24 PM EDT 08/27/2024 6:03 AM EDT Tissue specimen (specimen) Esophageal structure / Unknown 08/26/2024 4:26 PM EDT 08/27/2024 6:03 AM EDT Tissue specimen (specimen) Esophageal structure / Unknown 08/26/2024 4:29 PM EDT 08/27/2024 6:03 AM EDT Tissue specimen (specimen) Esophageal structure / Unknown 08/26/2024 4:30 PM EDT 08/27/2024 6:03 AM EDT us Blank Gonzalez MD LAB PATHOLOGY ORDERABLES Final Result [facility] [address] [place] [address] documented in this encounter Visit Diagnoses Diagnosis History of Avila's esophagus documented in this encounter Administered Medications Inactive Administered Medications - up to 3 most recent administrations Medication Order MAR Action Action Date Dose Rate Site simethicone (Mylicon) 20 mg/0.3 mL drops As needed, Starting on Sat08/26/24 at 1618, Until Sat08/26/24 at 1618, Routine, Intraprocedure Given 08/26/2024 4:18 PM EDT 20 mg documented in this encounter Care Teams Land Title Examiner Relationship Specialty Start Date End Date Efrain Bennett MD [address] [place] [address] [address] [place] [id number] PCP - General 07/29/20 documented as of this encounter
--- OUTSIDE RECORDS SUMMARY | 2024-08-26 16:11 | XMS_ITS | Encounter Summary ---
Author Organization [facility] Address [address] [place] [address] Care Team Providers Care Delivery Of Shopping News Name Role Phone Efrain Bennett MD Primary Care Provider [phone] Encounter Details Date Type Department Care Team (Late st Contact Info) Description 08/26/2024 4:11 PM EDT Anesthesia Event [facility] [address] [place] [address] Des Gray, DO [address] [place] [phone] Anesthesia Record Procedure Summary Procedure Name Responsible Anesthesiologist Anesthesia Start Time Anesthesia Stop Time EGD Des Grya DO 08/26/24 1611 08/26 1640 Events Date Time Event Comment 08/26/2024 1533 1611 In Room 1611 An Start The patient was reevaluated immediately before sedation and remains eligible for anesthesia plan. 1611 An Start Data 1613 An Induction The patient was reevaluated immediately before moderate or deep sedation use and before anesthesia induction. 1613 Anesthesia Ready 1617 Proc Start 1635 Proc Fin 1636 Out of Room 1636 an stop data 1640 Handoff to Receiving I compl eted my handoff to the receiving clinician during which we: 1. Identified the patient 2. Identified the responsible provider 3. Reviewed the pertinent medical history 4. Discussed the surgical course 5. Reviewed intra-op anesthesia management and issues during anesthesia 6. Set expectations for post-procedure period 7. Allowed opportunity for questions and acknowledgement of understanding. 1640 An Stop Meds Name Total propofol (Diprivan) injection 10 mg/mL 3 10 mg lidocaine PF (Xylocaine-MPF) 2% 100 mg lactated Ringer's infusion 500 mL * Agents Name O2 * Blood No blood administrations on file. Lines, Drains, and Airways Type Details Placement Removal Peripheral IV Placement Date: 08/16 04/11; Placement Time: 1607; Catheter Size: 22 G; Orientation: Anterior, Left; Location: Forearm; Site Prep: Alcohol; Technique: Anatomical landmarks; Inserted by: Fina Morrow RN; Insertion Attempts: 4; Patient Tolerance: Tolerated well; Removal Date: 08/26/24; Removal Time: 1704 08/26/24 1607 by Martina Morrow RN 08/26/24 170 by Veronica Ochoa documented in this encounter Social History Tobacco Use Types Packs/Day Years Used Date Smoking Tobacco: Former Cigarettes 0.5 20 1 983 - 2002 Smokeless Tobacco: Never Alcohol Use Standard Drinks/Week Comments No 0 (1 standard drink = 0.6 oz pur e alcohol) Comments No Sex and Gender Information Value Date Recorded Sex Assigned at Not on file Legal Sex Female 8:19 PM EDT Gender Identity Not on file Sexual Orientation Not on file documented as of this encounter Miscellaneous Notes * Anesthesia Postprocedure Evaluation - Eloy Momin CRNA - 08/26/2024 4:40 PM EDT Patient: Ingrid Stein Anesthesia Type: general Vitals Value Taken Time BP 123/51 08/26/24 16:40 Temp 97.3 08/26/24 16:40 Pulse 87 08/26/24 16:40 Resp 16 08/26/24 16:40 SpO2 100 08/26/24 16:40 Anesthesia Post Evaluation Patient location during evaluation: PACU Patient participation: complete - patient participated Level of consciousness: awake, baseline and responsive to physical stimuli Pain management: adequate (pain score 0-3) Airway patency: natural airway Cardiovascular status: acceptable and hemodynamically stable Respiratory status: acceptable, nasal cannula, spontaneous ventilation, nonlabored ventilation and unassisted Hydration status: acceptable Nausea/Vomiting: No No notable events documented. * Anesthesia Preprocedure Evaluation - Des Gray DO - 08/25/2024 2:15 PM EDT Images from the original note were not included. Patient: Ingrid Stein Procedure Information Date/Time: 08/26/24 1550 Scheduled providers: Blank Gonzalez MD; Des Gray DO; Eloy Momin CRNA Procedure: EGD Location: [facility] No anesthesia staff entered. 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 PMH significant for HTN, HLD, hiatal hernia, GERD w/ esophagitis, IBS, h/o breast cancer s/p lumpectomy and obesity (BMI 37). Multiple prior EGDs w/ ablation-airway note grade 2a w/ MAC 3. Denies any active cardiopulmonary symptoms. NPO to solids >8 hours, clears >2 hours. ALLERGIES Allergies[1] NPO STATUS AIRWAY HISTORY Past Medical History[2] MEDICATIONS Outpatient Prescriptions Prior to Admission[3] Current Outpatient Medications Medication Instructions acetaminophen (TYLENOL 8 HOUR) 1,300 mg, Daily aspirin 81 mg, Oral, Daily atorvastatin (LIPITOR) 40 mg, Nightly cefdinir (OMNICEF) 300 mg, Oral, 2 times daily Coenzyme Q10 (CoQ10) 200 MG capsule Daily dilTIAZem SR (CARDIZEM SR) 120 mg, Oral, 2 times daily DULoxetine (CYMBALTA) 60 mg, Nightly fluticasone (Flonase) 50 MCG/ACT nasal spray 1 spray, 2 times daily Vudn-Uqshd-AYM-Boswellia-Vit D (GLUCOS CHONDROIT, BOSWELLIA, PO) 500 mg, Oral, Daily losartan (COZAAR) 100 mg, Daily metFORMIN (GLUCOPHAGE) 500 mg, 2 times daily with meals methocarbamol (ROBAXIN) 750 mg, 3 times daily PRN omeprazole (PRILOSEC) 20 mg, 2 times daily Turmeric (QC TUMERIC COMPLEX PO) 1,000 mg, Daily Scheduled Current Scheduled Medications[4] PRNs Current PRN Medications[5] SURGICAL HX: Surgical History[6] FUNCTIONAL CAPACITY SOCIAL HX: Social History[7] OBJECTIVE DATA LABS Type and Screen No results found for: ABO COVID No results found for: SARSCOV2 Lab Results Component Value Date WBC 7.07 12/26/2019 HGB 8.6 (L) 12/26/2019 HCT 28.1 (L) 12/26/2019 MCV 96 12/26/2019 PLT 140 (L) 12/26/2019 Lab Results Component Value Date GLUCOSE 182 (H) 12/24/2019 NA 138 12/24/2019 K 4.6 12/24/2019 CO2 25 12/24/2019 CL 101 12/24/2019 BUN 13 12/24/2019 CREATININE 0.92 12/24/2019 Diabetic Labs No results found for: HGBA1C Lab Results Component Value Date PGLU 114 (H) 02/26/2024 ABG Lab Results Component Value Date LACTATE SPECIMEN CLOTTED,CREDITED, RECOLLECT REQUESTED 12/23/2019 Lab Results Component Value Date HCTSYR SPECIMEN CLOTTED,CREDITED, RECOLLECT REQUESTED 12/23/2019 NA 138 12/24/2019 KSYR SPECIMEN CLOTTED,CREDITED, RECOLLECT REQUESTED 12/23/2019 CLSYR SPECIMEN CLOTTED,CREDITED, RECOLLECT REQUESTED 12/23/2019 GLUSYR SPECIMEN CLOTTED,CREDITED, RECOLLECT REQUESTED 12/23/2019 LACTATE SPECIMEN CLOTTED,CREDITED, RECOLLECT REQUESTED 12/23/2019 EKG No results found for this or any previous visit (from the past 4464 hours). ECHO No echocardiogram results found for the past 12 months PFTs No results found for: DCP7VFZ , LSD3PAAR , ZDC6CTF , FVCPRED Anesthesia Evaluation Physical Exam Airway Mallampati: III Mouth opening: normal TM distance: >3 FB Neck ROM: full Cardiovascular Rhythm: regular Rate: normal Dental Pulmonary Breath sounds clear to auscultation Neurological Skin Musculoskeletal Extremities Anesthesia Plan ASA 2 Plan was reviewed with: ACCOUNT ASSOCIATE Anesthesia technique(s) discussed with the patient/family: general Anesthesia plan agreed upon was: general Anesthetic plan and risks discussed with patient. Additional Equipment Requests [1] No Known Allergies [2] Past Medical [...] urinary calculi History of renal calculi [3] (Not in a hospital admission) [4] [5] [6] Past Surgical History: Procedure Laterality Date ADENOIDECTOMY N/A Adenoidectomy from [employer] ANKLE SURGERY N/A Ankle Surgery from [employer] APPENDECTOMY N/A Appendectomy from [employer] BREAST LUMPECTOMY Left Left Breast Lumpectomy and 1 lymphnode CHOLECYSTECTOMY N/A Cholecystectomy from [employer] COLON SURGERY sigmoid remove LITHOTRIPSY N/A Renal Lithotripsy from [facility] LUMBAR FUSION N/A Lumbar vertebral fusion from [employer] LYMPHADENECTOMY N/A Lymphadenectomy from [employer] TONSILLECTOMY N/A Tonsillectomy from [employer] [7] Social History Tobacco Use Smoking status: Former Current packs/day: 0.00 Average packs/day: 0.5 packs/day for 20.0 years (10.0 ttl pk-yrs) Types: Cigarettes Start date: 1982 Quit date: 2002 Years since quittin.4 Smokeless tobacco: Never Vaping Use Vaping status: Never Used Substance Use Topics Alcohol use: No Drug use: No Comment: Drug use: No illicit drug use documented in this encounter Plan of Treatment Upcoming Encounters Date Type Department Care Team (Late st Contact Info) Description 11/10/2024 8:00 AM EDT Ovarian Cancer Screening [facility] Gynecology [address] [facility], [address] [place] [address] documented as of this encounter Visit Diagnoses Not on filedocumented in this encounter Administered Medications Inactive Administered Medications - up to 3 most recent administrations Medication Order MAR Action Action Date Dose Rate Site lactated Ringer's infusion Intravenous, Continuous PRN, Starting on Sat08/26/24 at 1611, Until Sat08/26/24 at 1640, Routine New Bag 08/26/2024 4:11 PM EDT lidocaine PF (Xylocaine) 2 % injection Intravenous, As needed, Starting on Sat08/26/24 at 1613, Until Sat08/26/24 at 1640, Routine, Anesthesia Intraprocedure Given 08/26/2024 4:13 PM EDT 100 mg propofol (Diprivan) injection Intravenous, As needed, Starting on Sat08/26/24 at 1613, Until Sat08/26/24 at 1640, Routine, Anesthesia Intraprocedure Given 08/26/2024 4:34 PM EDT 20 mg Given 08/26/2024 4:31 PM EDT 30 mg Given 08/26/2024 4:29 PM EDT 20 mg documented in this encounter Care Teams Delivery Of Shopping News Relationship Specialty Start Date End Date Efrain Bennett MD [address] [place] [address] [address] [place] [address] PCP - General 07/29/20 documented as of this encounter
--- OUTSIDE RECORDS SUMMARY | 2024-09-24 14:20 | XMS_ITS | Clinical Summary ---
Author Organization [facility] Address [address] [place] [address] Care Team Providers Care Centrex Radio Operator Name Role Phone Efrain Bennett MD Primary Care Provider [phone] Allergies No known active allergies Medications metFORMIN (Glucophage) 500 MG tablet Take 1 tablet by mouth 2 times a day with meals. Active dilTIAZem SR (Cardizem SR) 120 MG 12 hr capsule Take 1 capsule by mouth 2 times a day. Active losartan (Cozaar) 100 MG tablet Take 1 tablet by mouth daily. Active DULoxetine (Cymbalta) [address] capsule Take 1 capsule by mouth nightly. Do not crush or chew. Active omeprazole (PriLOSEC) [address] capsule Take 1 capsule by mouth 2 times a day. Do not crush or chew. Active atorvastatin (Lipitor) 40 MG tablet Take 1 tablet by mouth nightly. Active fluticasone (Flonase) 50 MCG/ACT nasal spray Administer 1 spray into each nostril 2 times a day. Shake gently. Before first use, prime pump. After use, clean tip and replace cap. Active methocarbamol (Robaxin) 750 MG tablet Take 1 tablet (750 mg) by mouth 3 (three) times a day if needed for muscle spasms. Active Turmeric (QC TUMERIC COMPLEX PO) Take 1,000 mg by mouth 1 (one) time each day. Active Jnmn-Vvohd-NVV- Boswellia-Vit D (GLUCOS CHONDROIT, BOSWELLIA, PO) Take 500 mg by mouth 1 (one) time each day. Active Coenzyme Q10 (CoQ10) 200 MG capsule Take by mouth 1 (one) time each day. Active acetaminophen (Tylenol 8 Hour) 650 MG ER tablet Take 2 tablets by mouth daily. Do not crush, chew, or split. Active aspirin 81 MG EC tablet Take 1 tablet (81 mg) by mouth 1 (one) time each day. Active cefdinir (Omnicef) 300 MG capsule Take 1 capsule (300 mg) by mouth 2 (two) times a day. Active Active Problems Problem Noted Date Diagnosed Date Obesity (BMI 35.0-39.9 without comorbidity) 06/17 Avila's esophagus with low grade dysplasia Encounters Date Type Department Care Team Description 09/09/2024 Results Follow-Up [facility] Medicine Specialties [address] [place] [address] Blank Gonzalez MD 08/26/2024 4:11 PM EDT Anesthesia Event [facility] [address] [place] [address] Des Gray DO 08/26/2024 2:39 PM EDT - 08/26/2024 11:59 PM EDT Hospital Encounter [facility] [address] [place] [address] Blank Gonzalez MD Cauthen, Benton R, DO Bilan, James J, CRNA Shrestha, Anjali, RN History of Avila's esophagus Discharge Disposition: Home or Self Care 08/26/2024 Travel 07/28/2024 Telephone [facility] Medicine Specialties [address] [place] [address] Amanda Spangler Request For Order(s) (Calling about EGD) from Last 3 Months Family History Medical History Relation Name Comments Colon cancer Father Breast cancer Mother Anesthesia problems Neg Hx Malig Hyperthermia Neg Hx Relation Name Status Comments Father Mother Social History Tobacco Use Types Packs/Day Years Used Date Smoking Tobacco: Former Cigarettes 0.5 20 1 983 - 2002 Smokeless Tobacco: Never Tobacco Cessation:Counseling Given: Not Answered Alcohol Use Standard Drinks/Week Comments No 0 (1 standard drink = 0.6 oz pur e alcohol) Comments No Sex and Gender Information Value Date Recorded Sex Assigned at Not on file Legal Sex Female 8:19 PM EDT Gender Identity Not on file Sexual Orientation Not on file Last Filed Vital Signs Vital Sign Reading [...] Mass Index 39.22 08/26/2024 3:00 PM EDT Plan of Treatment Upcoming Encounters Date Type Department Care Team (Late st Contact Info) Description 11/10/2024 8:00 AM EDT Ovarian Cancer Screening [facility] [address] [facility] [place] [address] Health Maintenance Due Date Last Done Comments [facility]-Bone Density Scan 1952 [facility]-Depression Screening 1952 [facility]-Hepatitis C Screening 1950 [facility]-Medicare Annual Wellness (AWV) 1952 [facility]-Infant/Child/Adol SDOH Screenings 1952 [facility]-Obesity Intervention 1958 [facility]- SDOH Screenings 1970 [facility]-Adult SDOH Screenings 1970 [facility]-DTaP,Tdap,and Td Vaccines (1 - Tdap) 1971 CT Colonography 1997 Colonoscopy 1997 FIT-DNA 1997 FIT 1997 FOBT 1997 Sigmoidoscopy 1997 [facility]-Colorectal Cancer Screening 1997 [facility]-Pneumococcal Vaccine: 50+ Years (1 of 1 - PCV) 2002 [facility]-Zoster Vaccines (1 of 2) 2002 [id number] Vaccine ( season) 2023 02/01/2021, 04/20/2020, 03/30/2020 [facility]-Influenza Vaccine (#1) 2024 01/14/2024 Gastroscopy (EGD) 08/26/2025 08/26/2024, , 10/03/2023, Additional history exists [facility]-Breast Cancer Screening 12/02/202511/16, 12/03/2023, 11/28/2022, Additional history exists [facility]-RSV Vaccine: 60+ Years or (1 - 1-dose 75+ series) 2027 HPV Vaccines Aged Out No longer eligi ble based on patient's age to complete this topic [facility]-HIB Vaccines Aged Out No longer e ligible based on patient's age to complete this topic [facility]-Hepatitis A Vaccines Aged Out No longer eligible based on patient's age to complete this topic [facility]-IPV Vaccines Aged Out No longer e ligible based on patient's age to complete this topic [facility]-Rotavirus Vaccines Aged Out No lo nger eligible based on patient's age to complete this topic Procedures Procedure Name Priority Date/Time Associated Diagnosis Comments EGD Routine 08/26/2024 4:36 PM EDT History of Avila's esophagus SURGICAL PATHOLOGY EXAM Routine 08/26/2024 4:24 PM EDT History of Avila's esophagus from Last 3 Months Results * EGD (08/26/2024 4:36 PM EDT) [...] Sims, COLIN Endo Nurse Beau Sparks Endo Sound System Installer Preprocedure A history and physical has been [...] PM EDT) Case Report Surgical Pathology Case: [id number] Authorizing Provider: Blank Gonzalez MD Collected: 08/26/2024 1624 Ordering Location: [facility] Endoscopy Received: 08/27/2024 0603 Pathologist: Skyler Barreto DO Specimens: A) - Esophagus, Esophageal Bx- 39cm B) - Esophagus, Esophageal Bx- 38cm C) - Esophagus, Esophageal Bx- 37cm D) - Esophagus, Esophageal Bx- 36cm 08/28/2024 8:45 AM EDT [facility] Final Diagnosis A. ESOPHAGUS, 39 CM, BIOPSY: [...] METAPLASIA OR DYSPLASIA. 08/28/2024 8:45 AM EDT [facility] at 0845 EDT Clinical Information Z87.19 [...] (from four quadrants). 08/28/2024 8:45 AM EDT [facility] Gross Description A. ESOPHAGEAL [...] Suzanna B Pettey 08/28/2024 8:45 AM EDT [facility] Note: A resident was involved in the service. I attest I examined the relevant preparations for the specimens and confirmed the diagnosis or interpretation. 08/28/2024 8:45 AM EDT [facility] Tissue Esophageal structure / [...] Gonzalez MD LAB PATHOLOGY ORDERABLES Final Result [facility] [address] [place] [address] from Last 3 Mon[address] MEDICARE Care Teams Centrex Radio Operator Relationship Specialty Start Date End Date Efrain Bennett MD [address] [place] [address] PCP - General 07/29/20
--- OUTSIDE RECORDS SUMMARY | 2024-09-24 14:21 | XMS_ITS | Encounter Summary ---
Author Organization [facility] Address [address] [place] [address] Care Team Providers Care Laser Systems Engineer Name Role Phone Efrain Bennett MD Primary Care Provider [phone] Encounter Details Date Type Department Care Team ([facility] Contact Info) Description 09/09/2024 Results Follow-Up [facility] Medicine Specialties [address] [place] [address] Blank Gonzalez MD [address] [place] [address] Social History Tobacco Use Types Packs/Day Years [...] on file documented as of this encounter Plan of Treatment Upcoming Encounters Date Type Department Care Team (Late Contact Info) Description 11/10/2024 8:00 AM EDT Ovarian Cancer Screening [facility] Gynecology [address] [place] [address] documented as of this encounter Visit Diagnoses Not on filedocumented in this encounter Care Teams Laser Systems Engineer Relationship Specialty Start Date End Date Efrain Bennett MD [address] [facility] [address] [place] [address] PCP - General 07/29/20 documented as of this encounter
--- OUTSIDE RECORDS SUMMARY | 2024-09-24 14:21 | XMS_ITS | Encounter Summary ---
Author Organization [facility] Address [address] [place] [address] Care Team Providers Care Tester Operator Helper Name Role Phone Efrain Bennett MD Primary Care Provider [phone] Reason for Visit * Reason Onset Date Comments Request For Order(s) 07/28/2024 Calling abo ut EGD Encounter Details Date Type Department Care Team (Late st Contact Info) Description 07/28/2024 Telephone [facility] Medicine Specialties [address] [place] [address] Amanda Spangler Request For Order(s) (Calling about EGD) Social History Tobacco Use Types Packs/Day Years [...] as of this encounter Miscellaneous Notes * Telephone Encounter - Marivel Cruz RN - 08/05/2024 3:14 PM EDT I called pt to let her know the current EGD order is still good. It does not need to be done with Dr. Patino not done at [facility]. Its a normal EGD with Bx's and it will be done at with any GI provider. I gave her the number if she wants to call to schedule * Telephone Encounter - Amanda Spangler - 07/28/2024 1:11 PM EDT Spoke with patient, she called to verify if she needed another EGD as she just had one in February.I advised that Dr Patino recommended another EGD in 6 months. She spoke with scheduling and they want to schedule her at [facility] with any available provider. She is requesting a new order be placed for her to have it done at [facility] and only by Dr Patnio. Please review and contact patient to advise documented in this encounter Plan of Treatment Upcoming Encounters Date Type Department Care Team (Late st Contact Info) Description 11/10/2024 8:00 AM EDT Ovarian Cancer Screening [facility] Gynecology [address] [facility]rd [place] [address] documented as of this encounter Visit Diagnoses Not on filedocumented in this encounter Care Teams Tester Operator Helper Relationship Specialty Start Date End Date Efrain Bennett MD [facility] [address] [place] [address] PCP - General 07/29/20 documented as of this encounter
--- OUTSIDE RECORDS SUMMARY | 2024-09-24 14:21 | XMS_ITS | Encounter Summary ---
Author Organization [facility] Address [address] [place] [address] Care Team Providers Care Arborist Climber Name Role Phone Efrain Bennett MD Primary Care Provider [phone] Encounter Details Date Type Department Care Team (Latest Contact Info) Description 08/26/2024 Travel Social History Tobacco Use Types Packs/Day Years Used Date Smoking Tobacco: Former Cigarettes 0.5 20 1 - 2002 Smokeless Tobacco: Never Alcohol Use [...] 11/10/2024 8:00 AM EDT Ovarian Cancer Screening [facility] Gynecology [address] [place] [address] documented as of this encounter Visit Diagnoses Not on filedocumented in this encounter Care Teams Arborist Climber Relationship Specialty Start Date End Date Efrain Bennett MD [address] [place] [id number] PCP - General 07/29/20 documented as of this encounter
[2024-09-24 14:38] VITALS: BP 130/81; PULSE 95; RESP 14; O2SAT 98; BMI 39.0
--- NOTE | 2024-09-24 14:47 | A.OFFVIS_ITS ---
[facility] Disclaimer: The information contained in this section may have been updated after the patient was seen, as this information can be updated by other users. Medical History Diverticulitis of sigmoid colon SURGERY Breast cancer SURGERY Osteoporosis Diverticulitis Barretts esophagus GERD (gastroesophageal reflux disease) HLD (hyperlipidemia) Diabetes HTN (hypertension) Family History Other Unknown family medical history Social History Smoking Status: Former smoker second hand exposure: No alcohol intake: never substance use type: denies use current occupational status: other Travel in the last 8 weeks?: None household members: spouse housing: house caffeine: No PM Subjective & Objective Subjective Subjective:: Patient is a pleasant 74-year-old female who presents today for follow-up of her cervical epidural steroid injection C6-C7 on 09/01/2024 and her follow-up of her thoracic imaging findings. Today she rates her pain a 2 out of 10. She denies any new falls or injuries. She does state that she has had approximately 90% improvement following this injection and feels like it is working really well. She does state that it did take a couple of days to kick in. Patient has still been using her blue emu topical. Patient states overall she is doing well but does still have a little bit of tingling around the area of her bra strap. Patient does state that this has even been better the last few days. Patient denies any other changes. Her Willian has been reviewed and is appropriate. Review of Systems: General: No recent weight changes, no fever, no sleep disturbances Respiratory: No cough, no shortness of air, no recurring pulmonary infections Cardiovascular/peripheral vascular: No chest pain, no palpitations, no edema, no shortness of breath Gastrointestinal: No new onset incontinence, normal bowel movements reported Genitourinary: No new onset incontinence Musculoskeletal: Neck pain, mid back pain Psychiatric: [Normal mood/affect] Neurological: [Denies weakness in extremities], [denies balance issues] Pain at rest (0-10 scale): 2 Objective Objective:: Physical Exam: General: Alert and oriented x3, no acute distress, pleasant and cooperative Lungs: Respirations even and unlabored, symmetrical chest expansion Eyes: PERRL Musculoskeletal: Flexion and extension of thoracic [spine] somewhat guarded secondary to pain Neurological: Speech clear, no gross sensory deficit Has patient had previous pain injection?: Yes Percent improvement in pain since last injection: 90% Conservative treatment options previously tried: Home exercise plan Length of treatment: Longer than 12 weeks Meds Home Medications and Allergies Home Medications ?Medication ?Instructions ?Recorded ?Confirmed ?Type diclofenac sodium 75 mg 75 mg PO BID Arthritis 90 da ys 02/22/18 09/24/24 History tablet,delayed release coenzyme Q10 100 mg capsule 100 mg PO DAILY Supplement 11/17/19 09/24/24 History ferrous sulfate 325 mg (65 mg 325 mg PO DAILY anemia 0 11/17/19 09/24/24 History iron) tablet fluticasone propionate 50 2 spray intranasal BID #16 g radha 03/01/21 09/24/24 Rx mcg/actuation nasal spray,suspension (Flonase Allergy Relief) turmeric 100 mg-oleg 150 1 cap PO DAILY 03/01/2101/09 History mg-olive 50 mg-oreg 150 mg-capryl capsule albuterol sulfate 90 mcg/actuation 2 puff inhalation Q ID PRN 10/02/23 09/24/24 Rx aerosol inhaler shortness of breath or wheez ing #8.5 grams azelastine 205.5 mcg (0.15 %) 2 spray intranasal BID # 30 mL 10/02/23 09/24/24 Rx nasal spray atorvastatin 40 mg tablet See Rx Instructions .Route 0 06/17/24 09/24/24 Rx .COMPLEX #90 tabs diltiazem HCl 120 mg See Rx Instructions .Route 0 06/17/24 09/24/24 Rx capsule,extended release 12 hr .COMPLEX #180 caps duloxetine 60 mg capsule,delayed See Rx Instructions . Route 06/17/24 09/24/24 Rx release .COMPLEX #90 caps losartan 100 mg tablet See Rx Instructions .Route 0 06/17/24 09/24/24 Rx .COMPLEX #90 tabs metformin 500 mg tablet See Rx Instructions .Route 0 06/17/24 09/24/24 Rx .COMPLEX #180 tabs alendronate 70 mg tablet 70 mg PO WEEKLY #12 tabs 09/24/24 Rx omeprazole 20 mg capsule,delayed See Rx Instructions . Route 09/24/24 09/24/24 Rx release .COMPLEX #180 caps New Prescriptions to Start Prescriptions: Allergies Allergy/AdvReac Type Severity Reaction Status Date / Time No Known Allergies Allergy Verified 08/04/24 11:20 Assessment and Plan *Assessment and plan (1) Degenerative disc disease: Status: Acute Category: Medical (2) Chronic back pain: Status: Acute Category: Medical Code(s): M54.9 - Dorsalgia, unspecified; G89.29 - Other chronic pain (3) Mid back pain: Status: Acute Category: Medical Code(s): M54.9 - Dorsalgia, unspecified (4) Thoracic radiculopathy: Status: Acute Category: Medical Code(s): M54.14 - Radiculopathy, thoracic region Plan I did review over with the patient regarding her updated thoracic imaging and its findings. Patient has had significant improvement following her cervical epidural and does not require any additional injection therapy at this time. We will follow-up with the patient in 6 weeks for reevaluation of symptoms and plan of care. Patient has been instructed to contact the clinic with any concerns before the next appointment. Dr. Mahajan has reviewed this note and agrees with this plan of care. This note was dictated using voice recognition software and make contain errors or omissions. All injections are used with Lidocaine, Bupivacaine and dexamethasone. Occasionally urine drug screen is needed to verify patient's compliance with our office pain contract. This is ordered based off specific treatments related to chronic pain with the potential to abuse certain medications.
== END 2024-09-24 23:59 | disposition home or self-care (01) ==
LOC: SC.PAIN 14:09
PROVIDERS: PCP Internal Medicine; Visit Provider Nurse Practitioner Family
DX: M51.14 Intervertebral disc disorders with radiculopathy, thoracic region (principal); G89.29 Other chronic pain
CPT/HCPCS: 99212; G0463

== ENCOUNTER 2024-11-09 13:19 | Outpatient (POV) | payer MEDICARE, SELFPAY ==
--- OUTSIDE RECORDS SUMMARY | 2024-11-09 13:23 | XMS_ITS | Clinical Summary ---
Author Organization [facility] Address [address] [place] [address] Care Team Providers Care Prep Room Supervisor Name Role Phone Efrain Bennett MD Primary Care Provider [phone] Allergies No known active allergies Medications metFORMIN [...] mouth 1 (one) time each day. Active Ecqv-Yjain-JNF- Boswellia-Vit D (GLUCOS CHONDROIT, BOSWELLIA, PO) Take [...] Department Care Team Description 09/09/2024 Results Follow-Up [facility] Medicine Specialties [address] [place] [address] Blank Gonzalez MD 08/26/2024 4:11 PM EDT Anesthesia Event [facility] [address] [place] [address] Des Gray DO 08/26/2024 2:39 PM EDT - 08/26/2024 11:59 PM EDT Hospital Encounter [facility] [address] [place] [address] Blank Gonzalez MD Cauthen, Benton R, DO Bilan, James J, CRNA Shrestha, Anjali, RN History of Avila's esophagus Discharge Disposition: Home or Self Care 08/26/2024 Travel from Last 3 Months Family History Medical [...] EDT Ovarian Cancer Screening [facility] [address] [facility] [place] [address] Health Maintenance Due Date Last Done Comments [facility]-Bone Density Scan 1952 [facility]-Depression Screening 1952 [facility]-Hepatitis C Screening 1952 [facility]-Medicare Annual Wellness (AWV) 1950 [facility]-/Child/Adol SDOH Screenings 1952 [facility]-Obesity Intervention 1958 [facility]- SDOH Screenings 1970 [facility]-Adult SDOH Screenings 1970 [facility]-DTaP,Tdap,and Td Vaccines (1 - Tdap) 1971 CT Colonography 1997 Colonoscopy 1997 FIT-DNA 1997 FIT 1997 FOBT 1997 Sigmoidoscopy 1997 [facility]-Colorectal Cancer Screening 1997 [facility]-Pneumococcal Vaccine: 50+ Years (1 of 1 - PCV) 2002 [facility]-Zoster Vaccines (1 of 2) 2002 NMA-TVOHE-13 Vaccine (4 - season) 2023 02/01/2021, 04/20/2020, 03/30/2020 [facility]-Influenza Vaccine [...] Sims, COLIN Endo Nurse Beau Sparks Endo Agricultural Agent Preprocedure A history and physical has been [...] SURGICAL PATHOLOGY EXAM Blank Gonzalez MD 08/26/2024 2849 B : Esophageal Bx- 38cm Tissue Esophagus SURGICAL PATHOLOGY EXAM Blank Gonzalez MD 08/26/2024 6547 C : Esophageal Bx- 37cm Tissue Esophagus [...] PM EDT) Case Report Surgical Pathology Case: [id number] Authorizing Provider: Blank Gonzalez MD Collected: 08/26/2024 1624 Ordering Location: [facility] Endoscopy Received: 08/27/2024 0603 Pathologist: Skyler Barreto DO Specimens: A) - Esophagus, Esophageal Bx- 39cm B) - Esophagus, Esophageal Bx- 38cm C) - Esophagus, Esophageal Bx- 37cm D) - Esophagus, Esophageal Bx- 36cm 08/28/2024 8:45 AM EDT [facility] Final Diagnosis A. ESOPHAGUS, 39 [...] METAPLASIA OR DYSPLASIA. 08/28/2024 8:45 AM EDT [facility] at 0845 EDT Clinical Information [...] (from four quadrants). 08/28/2024 8:45 AM EDT [facility] Gross Description A. ESOPHAGEAL BX- [...] Suzanna B Pettey 08/28/2024 8:45 AM EDT [facility] Note: A resident was involved in the service. I attest I examined the relevant preparations for the specimens and confirmed the diagnosis or interpretation. 08/28/2024 8:45 AM EDT [facility] Tissue Esophageal structure / Unknown [...] Gonzalez MD LAB PATHOLOGY ORDERABLES Final Result [facility] [address] [place] [address] from Last 3 Mon[address] MEDICARE Care Teams Prep Room Supervisor Relationship Specialty Start Date End Date Efrain Bennett MD [address] [facility] [address] [place] [address] PCP - General 07/29/20
--- OUTSIDE RECORDS SUMMARY | 2024-11-09 13:23 | XMS_ITS | Clinical Summary ---
Author Organization [facility] Address [address] [place] [address] Care Team Providers Care Proof Machine Operator Supervisor Name Role Phone Efrain Bennett MD Primary Care Provider [phone] Allergies No known active allergies Medications diltiaZEM (CARDIZEM) 120 MG tablet Take 120 mg by mouth 2 (Two) Times a Day. Active atorvastatin (LIPITOR) 40 MG tablet Take 40 mg by mouth Daily. Active DULoxetine (CYMBALTA) 60 MG capsule Take 60 mg by mouth Daily. Active anastrozole (ARIMIDEX) 1 MG tablet Take 1 mg by mouth Daily. Active omeprazole (priLOSEC) 20 MG capsule Take 20 mg by mouth 2 (Two) Times a Day. Active Unable to find Take 1 each by mouth 1 (One) Time. Med Name: domperidone 10 mg before meals and bedtime Active albuterol (PROVENTIL HFA;VENTOLIN HFA) 108 (90 BASE) MCG/ACT inhaler Inhale 2 puffs Every 4 (Four) Hours As Needed for Wheezing. Active coenzyme Q10 100 MG capsule Take 200 mg by mouth Daily. Active polyethylene glycol (MIRALAX) packet Take 17 g by mouth Daily. Active Psyllium (METAMUCIL FIBER PO) Take by mouth. Activ e acetaminophen (TYLENOL) 650 MG 8 hr tablet Take 650 mg by mouth Every 8 (Eight) Hours As Needed for Mild Pain . Active losartan (COZAAR) 100 MG tablet Take 100 mg by mouth Daily. Active Active Problems Problem Noted Date Diagnosed Date Spondylolisthesis at L5-S1 level 02/13/2017 Overview (02/13/2017): Added automatically from request for surgery [id number] Spondylisthesis 01/16/2017 Overview (12/18/2021): 12/16 REGULATORY IMPORT REPLACEMENT Diabetes mellitus 01/16/2017 Overview (01/16/2017): PRE DM Essential hypertension 01/16/2017 Other hyperlipidemia 01/16/2017 Mild intermittent asthma without complication GERD (gastroesophageal reflux disease) 7 Hiatal hernia 01/16/2017 Avila's esophagus 01/16/2017 Diverticulosis of intestine without bleeding 03/2016 Family History Medical History Relation Name Comments Colon cancer Father Breast cancer Mother BRCA 1/2 Neg Hx Ovarian cancer Neg Hx Relation Name Status Comments Father Mother Social History Tobacco Use Types Packs/Day Years Used Date Smoking Tobacco: Former Smokeless Tobacco: Never Comments:quit 7 years ago Alcohol Use Standard Drinks/Week Comments No 0 (1 standard drink = 0.6 oz pur e alcohol) Abuse Screen Answer Date Recorded Unsafe at Home or Work/School Not on file Feels Threatened by Someone? Not on file 11/2022 Does Anyone Keep You from Co ntacting Others or Doint Things Outside the Home? Not on file 12/24/2022 Physical Sign of Abuse Present Not on file 1 Housing Stability Answer Date Recorded Current Living Arrangements Not on file 11/2022 Potentially Unsafe Housing Conditions Not on efren e 12/24/2022 Family and Community Support Answer Earl e Recorded Help with Day-to-Day Activities Not on file 12/24/2022 Lonely or Isolated Not on file 12/24/2022 Employment Answer Date Recorded Do you want help finding or keeping work or a meron b? Not on file 12/24/2022 Disabilities Answer Date Recorded Concentrating, Remembering, or Making Decisions Difficulty Not on file 12/24/2022 Doing Errands Independently Difficulty Not on fi le 12/24/2022 Education Answer Date Recorded Help with school or training? Not on file Preferred Language Not on file 12/24/2022 Comments No Sex and Gender Information Value Date Recorded Sex Assigned at Not on file Legal Sex Female 1:30 PM EDT Gender Identity Not on file Sexual Orientation Not on file Last Filed Vital Signs Vital Sign Reading Time Taken Comments Blood Pressure 124/68 03/25/2017 11:23 AM EST Pulse 84 03/25/2017 11:23 AM EST Temperature 36.9 C (98.4 F) 03/25/2017 11:23 AM EST Respiratory Rate 16 03/25/2017 11:23 AM EST Oxygen Saturation 96% 03/25/2017 11:23 AM EST Inhaled Oxygen Concentration - - Weight 100 kg (220 lb 12.8 oz) 03/25/2017 11:23 AM EST Height 157.5 cm (5' 2 ) 03/25/2017 11:23 AM EST Body Mass Index 40.38 03/25/2017 11:23 AM EST Plan of Treatment Upcoming Encounters Date Type Department Care Team (Late st Contact Info) Description 12/05/2024 12:50 PM EDT Appointment [address] [address] Health Maintenance Due Date Last Done Comments DXA SCAN 1950 LIPID PANEL 1952 DIABETIC EYE EXAM 1962 DIABETIC FOOT EXAM 1962 URINE MICROALBUMIN-CREATININ E RATIO (uACR) 1962 Pneumococcal Vaccine 50+ (1 of 2 - PCV) 1971 TDAP/TD VACCINES (1 - Tdap) 1971 COLOGUARD 1997 COLON CANCER SCREENING 5 YEA R SIGMOIDOSCOPY 1997 COLONOSCOPY [address]CER SCREENING [address] COLONOGRAPHY 1997 FECAL OCCULT BLOOD TEST 1997 FIT Testing (1 year) 1997 ZOSTER VACCINE (1 of 2) 2002 ANNUAL WELLNESS VISIT 07/17/2016 HEPATITIS C SCREENING 07/17/2016 HEMOGLOBIN A1C 08/21/2017 02/20/2017 COVID-19 Vaccine (4 - 2023-2 5 season) 2023 02/01/2021, 04/20/2020, 03/30/2020 INFLUENZA VACCINE 12/16/2024 MAMMOGRAM 12/02/2025 12/03/2023, 11/16, 10/13/2021, Additional history exists Medical Devices Implanted Type Area Carbon Setter Device Identifier Shelf Expiration Date Model / Serial / Lot Cage Wave D 6d [id number] - [id number] Implanted:Qty : 1 on 02/27/2017 by Juliocesar Hobson MD at [facility] Implant Left: Spine Lumbar [employer] 12/22/2023 [id number] / / [id number] Cage Wave D 6d [id number] - [id number] Implanted:Qty : 1 on 02/27/2017 by Juliocesar Hobson MD at [facility] Implant Left: Spine Lumbar [employer] 05/25/2024 [id number] / / [id number] Paste Dbm Har[place] Pls 1cc - [id number] Implanted:Qty : 2 on 02/27/2017 by Juliocesar Hobson MD at [facility] Implant Left: Spine Lumbar [employer] 10/26/2018 [id number] / / Scrw Solera Mas 4.75mm 5.5x35mm - [id number] Implanted:Qty : 2 on 02/27/2017 by Juliocesar Hobson MD at [facility] Implant Left: Spine Lumbar [employer] [id number] / / Scrw Solera Mas 4.75mm 6.5x30mm - [id number] Implanted:Qty : 2 on 02/27/2017 by Juliocesar Hobson MD at [facility] Implant Left: Spine Lumbar [employer] [id number] / / Dk Solera Cocr Prebnt [id number] - [id number] Implanted:Qty : 2 on 02/27/2017 by Juliocesar Hobson MD at [facility] Implant Left: Spine Lumbar [employer] [id number] / / Scrw St Breakoff Solera Ti 4.75 - [id number] Implanted:Qty : 4 on 02/27/2017 by Juliocesar Hobson MD at [facility] Implant [employer] [id number] / / Procedures Procedure Name Priority Date/Time Associated Diagnosis Comments MAMMO SCREENING DIGITAL TOMOSYNTHESIS BILATERAL W CAD Routine 12/03/2023 11:41 AM EDT Screening mammogram for breast cancer HEMOGLOBIN A1C Add-On 02/20/2017 9:51 AM EST from Last 3 Months or Most Recently Relevant to Health Maintenance Results * Mammo Screening Digital Tomosynthesis Bilateral With CAD (12/03/2023 11:41 AM EDT) Anatomical Region Laterality Modality Breast N/A Mammography 12/04/2023 12:0 4 PM EDT Impressions 12/04/2023 12:07 PM EDT Benign screening mammogram. RECOMMENDATION: Continue annual screening mammography. BI-RADS CATEGORY 2, BENIGN. CAD was utilized. The standard false-negative rate of mammography is between 10% and 25%. Complex patterns or increased breast density will markedly elevate the false-negative rate of mammography. A letter, in lay terminology, with the results of this exam will be mailed to the patient. This report was finalized on 12/04/2023 12:[address] Trixie Gavin MD. Narrative 12/04/2023 12:07 PM EDT BILATERAL SCREENING MAMMOGRAM WITH TOMOSYNTHESIS: HISTORY: 73-year-old patient with a history of left breast conservation surgery. She has no new breast complaints. Her mother was also diagnosed with breast cancer. The pain has lost 17 pounds since her prior mammogram. TECHNIQUE: Bilateral CC and MLO low dose, full field digital mammographic images were obtained with tomosynthesis. COMPARISON: 11/28/2022, 10/13/2021, 10/06/2020, 10/01/2019, 08/05/2018, 02/04/2018, 07/29/2017, 01/28/2017, 07/27/2016 FINDINGS: The breast tissue is almost entirely fatty in density. The bilateral fibroglandular pattern and left lumpectomy bed are stable. There are no suspicious masses, worrisome calcifications, nonsurgical areas of architectural distortion, or other secondary signs of malignancy. Efrain Bennett MD IMG MAMMOGRAPHY ORDERABLES Fin al Result * (ABNORMAL) Hemoglobin A1c (02/20/2017 9:51 AM EST) Hemoglobin A1C 6.60(H) 4.80 - 5.60 % 02/20/2017 10:36 AM EST [facility] Blood Venipuncture / Unknown 02/20/2017 9:51 AM EST 02/20/2017 9:56 AM EST Narrative [facility] - 02/20/2017 10:36 AM EST The [place] [employer] recommends maintenance of Hemoglobin A1C at 7.0% or lower. Goals for Hemoglobin A1C reduction may need to be modified if hypoglycemia is a problem. us Tejas Hanna MD LAB BLOOD ORDERABLES Final Re sult [facility]
[address] [place] [address], from Last 3 Months or Most Recently Relevant to Health Maintenance Additional Health Concerns Infection Onset Date Last Indicated MRSA 02/20/2017 02/20/2017 Insurance [employer] PPO Advance Directives * Full Code (Latest Code Status on File) Date Activated Date Inactivated Comments 02/27/2017 7:33 PM 02/28/2017 5:07 PM Care Teams Proof Machine Operator Supervisor Relationship Specialty Start Date End Date Efrain Bennett MD [address] [facility] [address] [place] [address] PCP - General 08/08/15
[2024-11-09 14:35] VITALS: BP 140/75; PULSE 85; RESP 14; O2SAT 94; BMI 38.7
--- NOTE | 2024-11-09 14:35 | A.OFFVIS_ITS ---
[facility] Disclaimer: The information contained in this section may have been updated after the patient was seen, as this information can be updated by other users. Medical History Diverticulitis of sigmoid colon SURGERY Breast cancer SURGERY Osteoporosis Diverticulitis Barretts esophagus GERD (gastroesophageal reflux disease) HLD (hyperlipidemia) Diabetes HTN (hypertension) Family History Other Unknown family medical history Social History Smoking Status: Former smoker second hand exposure: No alcohol intake: never substance use type: denies use current occupational status: other Travel in the last 8 weeks?: None household members: spouse housing: house caffeine: No Have you lived/traveled outside [place] in past 30 days?: No Contact w/someone who lives/traveled outside [place] past 30 days?: No Exposure to someone with infectious disease in past 14 days?: No Do you have a fever (greater than 100.4 F or 38 C)?: No Have you tested positive for COVID-19?: No Exposed to someone with COVID-19 in past 14 days?: No Do you have a sore throat?: No Do you have a cough?: No Do you have any weakness?: No Do you have any diarrhea?: No Are you experiencing any unusual bleeding?: No Do you have any muscle aches/pain?: No Do you have any abdominal pain?: No Are you experiencing loss of taste or smell?: No PM Subjective & Objective Subjective Subjective:: Patient is a pleasant 74-year-old female who presents today for worsening low back and hip pain more prominent on the right side. Patient does also have chronic neck pain that does radiate into her upper extremities with the right being worse than the left but does affect both sides. Patient does state today that the low back symptoms are worse than the neck and upper extremity pain. Patient states that she is not having any issues along the left side. She describes it as a stabbing sensation that is worse with increased activity or prolonged positioning. She does state the pain is interfering with her ability perform activities of daily living such as cooking and cleaning. Patient is interested in additional injection therapy. Patient has continued conservative treatment with minimal changes. Her Willian has been reviewed and is appropriate. Review of Systems: General: No recent weight changes, no fever, no sleep disturbances Respiratory: No cough, no shortness of air, no recurring pulmonary infections Cardiovascular/peripheral vascular: No chest pain, no palpitations, no edema, no shortness of breath Gastrointestinal: No new onset incontinence, normal bowel movements reported Genitourinary: No new onset incontinence Musculoskeletal: Low back pain, right hip pain Psychiatric: [Normal mood/affect] Neurological: [Denies weakness in extremities], [denies balance issues] Pain at rest (0-10 scale): 5 Objective Objective:: Physical Exam: General: Alert and oriented x3, no acute distress, pleasant and cooperative Lungs: Respirations even and unlabored, symmetrical chest expansion Eyes: PERRL Musculoskeletal: Flexion and extension of lumbar [spine] somewhat guarded secondary to pain, [antalgic gait noted] point tenderness along right SI and right greater trochanteric bursa with positive right Bianca's, Oracio's, Gaenslen's, compression and distraction exam Neurological: Speech clear, no gross sensory deficit Has patient had previous pain injection?: No Conservative treatment options previously tried: Home exercise plan Length of treatment: Longer than 12 weeks Meds Home Medications and Allergies Home Medications ?Medication ?Instructions ?Recorded ?Confirmed ?Type diclofenac sodium 75 mg 75 mg PO BID Arthritis 90 da ys 02/22/18 10/06/24 History tablet,delayed release coenzyme Q10 100 mg capsule 100 mg PO DAILY Supplement 11/17/19 10/06/24 History ferrous sulfate 325 mg (65 mg 325 mg PO DAILY anemia 0 11/17/19 10/06/24 History iron) tablet turmeric 100 mg-oleg 150 1 cap PO DAILY 03/01/21 History mg-olive 50 mg-oreg 150 mg-capryl capsule albuterol sulfate 90 mcg/actuation 2 puff inhalation Q ID PRN 10/02/23 10/06/24 Rx aerosol inhaler shortness of breath or wheez ing #8.5 grams azelastine 205.5 mcg (0.15 %) 2 spray intranasal BID # 30 mL 10/02/23 10/06/24 Rx nasal spray atorvastatin 40 mg tablet See Rx Instructions .Route 0 06/17/24 10/06/24 Rx .COMPLEX #90 tabs diltiazem HCl 120 mg See Rx Instructions .Route 0 06/17/24 10/06/24 Rx capsule,extended release 12 hr .COMPLEX #180 caps duloxetine 60 mg capsule,delayed See Rx Instructions . Route 06/17/24 10/06/24 Rx release .COMPLEX #90 caps losartan 100 mg tablet See Rx Instructions .Route 0 06/17/24 10/06/24 Rx .COMPLEX #90 tabs metformin 500 mg tablet See Rx Instructions .Route 0 06/17/24 10/06/24 Rx .COMPLEX #180 tabs alendronate 70 mg tablet 70 mg PO WEEKLY #12 tabs 10/06/24 Rx omeprazole 20 mg capsule,delayed See Rx Instructions . Route 09/24/24 10/06/24 Rx release .COMPLEX #180 caps fluticasone propionate 50 1 spray intranasal BID #16 g radha 11/04/24 Rx mcg/actuation nasal spray,suspension (Flonase Allergy Relief) New Prescriptions to Start Prescriptions: Allergies Allergy/AdvReac Type Severity Reaction Status Date / Time No Known Allergies Allergy Verified 10/06/24 10:13 Assessment and Plan *Assessment and plan (1) Trochanteric bursitis of right hip: Status: Acute Category: Medical Code(s): M70.61 - Trochanteric bursitis, right hip (2) Right sided sciatica: Status: Chronic Category: Medical Code(s): M54.31 - Sciatica, right side (3) Sacroiliitis: Status: Acute Category: Medical Code(s): M46.1 - Sacroiliitis, not elsewhere classified Plan Patient is experiencing worsening pain along her low back and right hip with limited range of motion. Patient did have point tenderness along her right SI and right greater trochanteric bursa during today's exam. I did discuss with patient that I do believe she would benefit from a right SI and right greater trochanteric bursa injection. Risk and benefits were discussed with the patient and she would like to proceed forward with this plan of care. Patient has had this pain for longer than 6 months unrelieved with conservative measures such as oral medication, heat and ice, topicals, at home stretching exercise for longer than 12 weeks. Patient has to adjust her activity due to the worsening pain symptoms. Patient was counseled if she does get significant relief with the right SI injection that we will plan on proceeding forward with additional SI injections in the future. Patient may also be a surgical candidate for an SI fusion at a later date. We will continue to monitor this. It will be a diagnostic SI injection with less than 1 mL of solution to be injected. Patient will be scheduled for a right SI and right bursa injection under fluoroscopy. Patient has been instructed to contact the clinic with any concerns before the next appointment. Dr. Mahajan has reviewed this note and agrees with this plan of care. This note was dictated using voice recognition software and make contain errors or omissions. All injections are used with Lidocaine, Bupivacaine and dexamethasone unless diagnostic in which case there is no steroids injected. Occasionally urine drug screen is needed to verify patient's compliance with our office pain contract. This is ordered based off specific treatments related to chronic pain with the potential to abuse certain medications.
== END 2024-11-09 23:59 | disposition home or self-care (01) ==
PROVIDERS: PCP Internal Medicine; Visit Provider Nurse Practitioner Family
DX: M70.61 Trochanteric bursitis, right hip (principal); M54.31 Sciatica, right side; M46.1 Sacroiliitis, not elsewhere classified
CPT/HCPCS: 99212; G0463

== ENCOUNTER 2025-02-09 08:03 | Day surgery (SDC) | payer MEDICARE, SELFPAY ==
[2025-02-09 08:09] VITALS: BP 124/81; PULSE 95; RESP 16; O2SAT 95; BMI 36.2
[2025-02-09] MEDS: BUPIVACAINE 0.25% 10ML INJ 25 MG IJ (08:32)
[2025-02-09] MEDS: DEXAMETHASONE 10MG/ML 1ML VIAL 10 MG (08:33)
[2025-02-09] MEDS: LIDOCAINE 1% 5ML PF VIAL 5 ML (08:33)
[2025-02-09 08:34] VITALS: BP 171/84; PULSE 92; RESP 18; O2SAT 90
[2025-02-09 08:35] VITALS: BP 171/84; PULSE 92; RESP 18; O2SAT 90
--- NOTE | 2025-02-09 08:43 | P.PCN_ITS ---
Procedure Date: 02/09/25 Time: 08:30 Anesthesiologist:: Parrish Tom CRNA Complications:: None Pre-procedure Diagnosis:: Right sacroiliitis. Right trochanteric bursitis. Post-procedure Diagnosis:: Same. Indications for Procedure:: Patient is very pleasant 74-year-old female comes to clinic today for right sacroiliac joint injection of local anesthetic. Also right trochanteric bursa injection of cortisone and local anesthetic. Patient describes right low lumbar back pain off the midline as constant, dull, aching. She reports having difficulty with ambulation. Difficulty with sitting. Difficulty with transitioning from sitting to standing. Also, right lateral hip pain. She has extreme point tenderness over the right trochanteric bursa. She rates her pain 7/10. Procedure Details:: Procedure: Right sacroliliac joint injection under fluoroscopy Informed consent was obtained and the risk and benefits of the procedure were explained to the patient.~ The patient was taken to the procedure room and noninvasive monitors were placed including noninvasive blood pressure cuff and pulse oximeter.~ The patient was placed prone on the procedure table.~ The~ right hip was cleansed using Betadine as a cleansing solution.~ C-arm fluorosocpy was used to view the right SI joint.~ The skin and subcutaneous tissues were anesthetized using Lidocaine 1.5% and a 25-gauge needle.~ After this, a 22-gauge spinal needle was inserted under fluoroscopic guidance into the inferior aspect of the right SI joint.~ Omnipaque dye was injected and a good spread was seen throughout the joint.~ After this, approximately 5 mL of bupivacaine 0.25% was incrementally injected into the sacroiliac joint.~ The patient tolerated the procedure well with no complications.~ The patient was observed in the Pain Clinic, then discharged home neurologically intact.~ Procedure: Right trochanteric bursa injection under fluoroscopy We then moved to the right trochanteric bursa.~ C-arm fluoroscopy was used to view the left greater trochanter.~ The skin and subcutaneous tissues overlying the right greater trochanter were anesthetized using lidocaine, 1.5% and a 25- gauge needle.~ After this, a 22-gauge spinal needle was inserted and advanced u ntil it contacted the right greater trochanter.~ Dye was injected and good spread was seen throughout the right trochanteric bursa. After this, approximately 5 mL of bupivacaine, 0.25% and dexamethasone 10 mg was incrementally injected into the right right trochanteric bursa.~ The patient tolerated the procedure well with no complications. Plan and Disposition:: Patient was discharged without incident.
[2025-02-09 08:45] VITALS: BP 146/83; PULSE 87; RESP 16; O2SAT 96
== END 2025-02-09 08:45 | disposition home or self-care (01) ==
PROVIDERS: PCP Internal Medicine; Visit Provider Nurse Anesthetist, Certified Registered
DX: M46.1 Sacroiliitis, not elsewhere classified (principal); M70.61 Trochanteric bursitis, right hip; K21.00 Gastro-esophageal reflux disease with esophagitis, without bleeding; E11.9 Type 2 diabetes mellitus without complications; I10 Essential (primary) hypertension; M81.0 Age-related osteoporosis without current pathological fracture; Z87.891 Personal history of nicotine dependence; Z79.899 Other long term (current) drug therapy
CPT/HCPCS: G0260; J0665; J1100; J2003